=== PATIENT | female | born 1955 | race Two or more races ===

== ENCOUNTER 2019-12-29 14:06 | Inpatient (IN) | payer MEDICARE, MEDICAID ==
[~2019-12-29] VITALS: Ht 165.1 cm; Wt 146.0 kg
[2019-12-29 15:02] LABS: Eosinophils # (auto) 0 10 ^3/uL (0-0.8); Eosinophils % (auto) 0.1 % (0.0-7.0); Lymphocytes # (auto) 0.5 10 ^3/uL (0.4-5.4); Monocytes # (auto) 0.8 10 ^3/uL (0-1.3); Neutrophils % (auto) 93.3 % (37.0-80.0); Nucleated Red Blood Cells % 0.1 %
[2019-12-29 15:05] LABS: Basophils # (auto) 0 10 ^3/uL (0-0.2); Basophils % (auto) 0.1 % (0.0-2.0); Hematocrit 20.5 % (36.0-46.0); Lymphocytes % (auto) 2.4 % (10.0-50.0); Mean Corpuscular Hemoglobin 28.9 pg (28.0-32.0); Mean Corpuscular Volume 99.6 fL (80.0-100.0); Monocytes % (auto) 4.1 % (0.0-12.0); Neutrophils # (auto) 18.2 10 ^3/uL (1.6-8.6); Platelet Count (auto) 568 10^3/uL (140-450); Red Blood Cells 2.06 10^6/uL (4.0-5.20); Red Cell Distribution Width 16.6 % (11.8-14.3); White Blood Cell 19.5 10^3/uL (4.4-10.8)
[2019-12-29 15:16] LABS: Albumin 1.7 g/dL (3.4-5.0); Anion Gap 26 (5-15); BUN/Creatinine Ratio 9.2; Calcium 8.9 mg/dL (8.5-10.1); Carbon Dioxide 15 mmol/L (21-32); Chloride 83 mmol/L (98-107); GFR African American 5 mL/min; GFR Non-African American 4 mL/min; Magnesium 2.5 mg/dL (1.6-2.6); Potassium 3.8 mmol/L (3.5-5.1); Sodium 124 mmol/L (136-145)
[2019-12-29 15:18] LABS: Alanine Aminotransferase 6 U/L (13-56); Aspartate Aminotransferase 7 U/L (15-37); Bilirubin, Total 0.3 mg/dL (0.2-1.0); Total Protein 6.5 g/dL (6.4-8.2)
[2019-12-29 15:19] LABS: Hemoglobin 5.9 g/dL (12.2-16.2)
[2019-12-29 15:24] LABS: Alkaline Phosphatase 183 U/L (45-117)
[2019-12-29 15:30] LABS: Blood Urea Nitrogen 96 mg/dL (7-18)
[2019-12-29 15:31] LABS: Glucose 1126 mg/dL (74-106)
[2019-12-29] MEDS ORDERED: DEXTROSE (50%) 50ML SYRG IV PRN (15:45)
[2019-12-29] MEDS ORDERED: InsuLIN R (HUMAN) 100 UNITS in SODIUM CHL 0.9% 99 ML IV SCH (15:45)
[2019-12-29] MEDS ORDERED: INSULIN LANTUS (GLARGINE) 1 /0.01ml (100units/ml) SC ONE (15:45)
[2019-12-29] MEDS ORDERED: SODIUM CHLORIDE 0.9% 2,000 ML IV ONE (16:15)
[2019-12-29] MEDS ORDERED: NITROGLYCERIN 0.4 MG SL TAB SL PRN ×2 (16:15→16:45)
[2019-12-29] MEDS ORDERED: VANCOMYCIN PER PHARMACY 0 MG IV SCH (16:15)
[2019-12-29] MEDS ORDERED: SOD CHL 0.9%/ KCL 20MEQ 1,000 ML IV SCH (16:15)
[2019-12-29 16:24] LABS: Lactic Acid w/Reflex 2.8 mmol/L (0.4-2.0)
[2019-12-29] MEDS: ACCU-CHEK COMFORT CURVE STRIP VI SCH ×4 (16:30→23:09)
[2019-12-29] MEDS ORDERED: DOCUSATE SOD 100 MG CAP PO PRN (16:45)
[2019-12-29] MEDS ORDERED: MORPHINE SULFATE 4 MG/ML SYR/VIAL IV PRN (16:45)
[2019-12-29] MEDS ORDERED: LORazepam 2MG/ML-1ML VIAL IV PRN (16:45)
[2019-12-29] MEDS ORDERED: ALUM & MAG HYDROX-SIMETH LIQ(MAALOX) 30 ML PO PRN (16:45)
[2019-12-29] MEDS ORDERED: MORPHINE SULF INJ 2 MG/ML SYRINGE 1ML IV PRN (16:45)
[2019-12-29] MEDS ORDERED: ACETAMINOPHEN 325 MG TAB PO PRN (16:45)
[2019-12-29] MEDS: INSULIN LANTUS (GLARGINE) 1 /0.01ml (100units/ml) SC SCH (17:04)
[2019-12-29] MEDS: PIPERACILLIN-TAZOB 2.25GM 50 ML IV SCH (17:25)
[2019-12-29] MEDS ORDERED: VANCOMYCIN 1GM/250ML 250 ML IV ONE (17:30)
[2019-12-29 17:33] LABS: Cholesterol 129 mg/dL (< 200)
[2019-12-29 17:35] LABS: INR 1.18 (0.9-1.15); Partial Thromboplastin Time 27.5 sec (23.0-31.2)
[2019-12-29 17:36] LABS: HDL Cholesterol 20 mg/dL (40-59); Triglycerides 436 mg/dL (< 150)
[2019-12-29] MEDS ORDERED: PYRI25TA16 PO (17:39)
[2019-12-29] MEDS ORDERED: SEVE800T8 PO (17:39)
[2019-12-29] MEDS ORDERED: LEVO25TA6 PO (17:39)
[2019-12-29] MEDS ORDERED: PERCOT PO (17:39)
[2019-12-29] MEDS ORDERED: TRAM50TA2 PO (17:39)
[2019-12-29] MEDS ORDERED: ISOS30TA4 PO (17:39)
[2019-12-29] MEDS ORDERED: ZOLP10TA6 PO (17:39)
[2019-12-29] MEDS ORDERED: CILO100T PO (17:39)
[2019-12-29] MEDS ORDERED: OMEP-263 PO (17:39)
[2019-12-29] MEDS ORDERED: CLOP75TA41 PO (17:39)
[2019-12-29] MEDS ORDERED: LATA0.0019 LEFTEYE (17:39)
[2019-12-29] MEDS ORDERED: BUME1TAB3 PO (17:41)
[2019-12-29] MEDS ORDERED: CALCIUM ACETATE 667 MG CAP PO SCH (18:00)
[2019-12-29 18:35] VITALS: BP 115/60
[2019-12-29 19:03] VITALS: BP 130/49
[2019-12-29] MEDS: SEVELAMER 800 MG TAB PO SCH (20:23)
[2019-12-29] MEDS: FERROUS SULFATE 325 MG TAB PO SCH (20:38)
[2019-12-29 20:55] VITALS: BP 143/50
[2019-12-29 21:30] VITALS: BP 143/53
[2019-12-29] MEDS: SODIUM CHLORIDE 0.9% 1,000 ML IV SCH (21:53)
[2019-12-29] MEDS ORDERED: FAMOTIDINE 20 MG TAB PO SCH (22:00)
[2019-12-29] MEDS ORDERED: LATANOPROST 0.005 % OPTH(EYE) SOL 2.5ML EACHEYE SCH (22:00)
[2019-12-29] MEDS: FAMOTIDINE (10MG/ML) 2ML VL IV SCH (22:13)
[2019-12-29] MEDS: CILOSTAZOL 100 MG TAB PO SCH ×2 (22:13→23:00)
[2019-12-29] MEDS: ATORVASTATIN 20 MG TAB PO SCH (22:13)
[2019-12-29 23:00] VITALS: BP 143/53
[2019-12-29] MEDS ORDERED: INSU1INJ19 SC (23:41)
[2019-12-29] MEDS ORDERED: INSUINJ2 SC (23:41)
[2019-12-29] MEDS ORDERED: INSREG3 SC (23:41)
[2019-12-30] VITALS (13 sets, daily range): BP systolic 99–160; BP diastolic 25–72
[2019-12-30] MEDS ORDERED: InsuLIN R (HUMAN) 100 UNITS in SODIUM CHL 0.9% 99 ML IV SCH (00:15)
[2019-12-30] MEDS: ACCU-CHEK COMFORT CURVE STRIP VI SCH ×16 (00:35→22:38)
[2019-12-30] MEDS: InsuLIN R (HUMAN) 100 UNITS in SODIUM CHL 0.9% 99 ML IV SCH ×2 (01:45→03:44)
[2019-12-30] MEDS: SODIUM CHLORIDE 0.9% 1,000 ML IV SCH ×2 (02:45→10:22)
[2019-12-30 03:12] LABS: Basophils # (auto) 0.1 10 ^3/uL (0-0.2); Basophils % (auto) 0.4 % (0.0-2.0); Eosinophils # (auto) 0 10 ^3/uL (0-0.8); Eosinophils % (auto) 0.2 % (0.0-7.0); Hematocrit 22.5 % (36.0-46.0); Hemoglobin 7.2 g/dL (12.2-16.2); Lymphocytes # (auto) 0.9 10 ^3/uL (0.4-5.4); Mean Corpuscular Hemoglobin 28.9 pg (28.0-32.0); Mean Corpuscular Volume 90.5 fL (80.0-100.0); Monocytes # (auto) 0.6 10 ^3/uL (0-1.3); Monocytes % (auto) 3.5 % (0.0-12.0); Neutrophils # (auto) 16.2 10 ^3/uL (1.6-8.6); Neutrophils % (auto) 90.9 % (37.0-80.0); Nucleated Red Blood Cells % 0.1 %; Platelet Count (auto) 470 10^3/uL (140-450); Red Blood Cells 2.48 10^6/uL (4.0-5.20); Red Cell Distribution Width 15.5 % (11.8-14.3); White Blood Cell 17.8 10^3/uL (4.4-10.8)
[2019-12-30 03:40] LABS: Calcium 8.6 mg/dL (8.5-10.1)
[2019-12-30 03:49] LABS: BUN/Creatinine Ratio 9.6
[2019-12-30] MEDS ORDERED: POTASSIUM CHL 20MEQ/100ML 100 ML IV ONE (04:45)
[2019-12-30] MEDS ORDERED: BUMETANIDE 1 MG TAB PO SCH (06:00)
[2019-12-30] MEDS: LEVOTHYROXINE SODIUM 25 MCG TAB PO SCH (06:38)
[2019-12-30] MEDS ORDERED: LEVOTHYROXINE SODIUM 25 MCG TAB PO SCH (07:00)
[2019-12-30] MEDS: FERROUS SULFATE 325 MG TAB PO SCH ×3 (08:00→17:50)
[2019-12-30] MEDS: SEVELAMER 800 MG TAB PO SCH ×3 (08:00→17:50)
[2019-12-30 08:05] LABS: Hemoglobin 7.3 g/dL (12.2-16.2)
[2019-12-30 08:06] LABS: Hematocrit 22.1 % (36.0-46.0)
[2019-12-30] MEDS: FAMOTIDINE (10MG/ML) 2ML VL IV SCH ×2 (09:06→21:50)
[2019-12-30] MEDS: PIPERACILLIN-TAZOB 2.25GM 50 ML IV SCH ×2 (09:06→21:51)
[2019-12-30] MEDS: CILOSTAZOL 100 MG TAB PO SCH ×2 (09:07→21:51)
[2019-12-30] MEDS: ISOSORBIDE MONONITRATE ER 60 MG TAB PO SCH (09:07)
[2019-12-30] MEDS: CHOLECALCIFEROL (VITD3) 2,000 UNIT CAP PO SCH (10:00)
[2019-12-30] MEDS: PYRIDOXINE HCL 50 MG TAB PO SCH (10:00)
[2019-12-30] MEDS: INSULIN LANTUS (GLARGINE) 1 /0.01ml (100units/ml) SC SCH (10:00)
[2019-12-30] MEDS ORDERED: GOLYTELY 4L KIT PO ONE (10:15)
[2019-12-30] MEDS ORDERED: VANCOMYCIN 500 MG in D5W 5% 100 ML IV ONE (13:00)
[2019-12-30 14:32] LABS: Basophils # (auto) 0 10 ^3/uL (0-0.2); Eosinophils # (auto) 0.3 10 ^3/uL (0-0.8); Monocytes # (auto) 0.8 10 ^3/uL (0-1.3); Monocytes % (auto) 4.6 % (0.0-12.0)
[2019-12-30 14:33] LABS: Basophils % (auto) 0.2 % (0.0-2.0); Eosinophils % (auto) 1.7 % (0.0-7.0); Hematocrit 21.8 % (36.0-46.0); Hemoglobin 7.5 g/dL (12.2-16.2); Lymphocytes # (auto) 1.3 10 ^3/uL (0.4-5.4); Lymphocytes % (auto) 7.4 % (10.0-50.0); Mean Corpuscular Hemoglobin 29.8 pg (28.0-32.0); Mean Corpuscular Hgb Conc. 34.4 g/dL (32.0-36.0); Mean Corpuscular Volume 86.6 fL (80.0-100.0); Neutrophils # (auto) 15.1 10 ^3/uL (1.6-8.6); Neutrophils % (auto) 86.1 % (37.0-80.0); Nucleated Red Blood Cells % 0.2 %; Platelet Count (auto) 463 10^3/uL (140-450); Red Blood Cells 2.52 10^6/uL (4.0-5.20); Red Cell Distribution Width 15.4 % (11.8-14.3); White Blood Cell 17.5 10^3/uL (4.4-10.8)
[2019-12-30 14:48] LABS: Albumin 1.5 g/dL (3.4-5.0); Calcium 8.6 mg/dL (8.5-10.1); Potassium 3.1 mmol/L (3.5-5.1)
[2019-12-30 14:52] LABS: BUN/Creatinine Ratio 10.5; Bilirubin, Total 0.3 mg/dL (0.2-1.0); Total Protein 5.8 g/dL (6.4-8.2)
[2019-12-30] MEDS ORDERED: POTASSIUM CHLORIDE 60 MEQ, LIDOCAINE 1% (LOCAL ANESTH.) 6 ML in SODIUM CHL 0.9% 500 ML IV ONE (15:15)
[2019-12-30] MEDS: LINEZOLID 600MG/300ML 300 ML IV SCH (16:10)
[2019-12-30 16:18] LABS: Urine Amorphous Crystal MOD /hpf (None Seen); Urine Bacteria NONE SEEN /hpf (None Seen); Urine Blood 1+ /uL (Negative); Urine Specific Gravity 1.014 (1.001-1.035); Urine WBC 1222 /hpf (0 - 5); Urine WBC Clumps PRESENT /hpf (None Seen)
[2019-12-30] MEDS ORDERED: PERITONEAL DIALYSIS 2.5% SOLN 2,000 ML IP SCH (18:00)
[2019-12-30] MEDS: ATORVASTATIN 20 MG TAB PO SCH (21:51)
[2019-12-30] MEDS: LATANOPROST 0.005 % OPTH(EYE) SOL 2.5ML LEFTEYE SCH (21:51)
[2019-12-31] VITALS (11 sets, daily range): BP systolic 102–138; BP diastolic 40–75
[2019-12-31] MEDS: PERITONEAL DIALYSIS 2.5% IP SCH ×4 (00:29→21:00)
[2019-12-31] MEDS: HEPARIN SODIUM IP SCH ×4 (00:29→21:00)
[2019-12-31] MEDS: ACCU-CHEK COMFORT CURVE STRIP VI SCH ×9 (01:26→18:00)
[2019-12-31] MEDS: InsuLIN R (HUMAN) 100 UNITS in SODIUM CHL 0.9% 99 ML IV SCH (01:29)
[2019-12-31] MEDS: HYDROcodone-ACET 5/325MG TAB PO PRN (01:41)
[2019-12-31] MEDS: LINEZOLID 600MG/300ML 300 ML IV SCH ×2 (03:31→16:00)
[2019-12-31 03:50] LABS: Basophils # (auto) 0 10 ^3/uL (0-0.2); Basophils % (auto) 0.1 % (0.0-2.0); Mean Corpuscular Volume 88.4 fL (80.0-100.0); Monocytes # (auto) 0.7 10 ^3/uL (0-1.3)
[2019-12-31 03:51] LABS: Eosinophils # (auto) 0.3 10 ^3/uL (0-0.8); Eosinophils % (auto) 1.7 % (0.0-7.0); Hematocrit 21.5 % (36.0-46.0); Lymphocytes # (auto) 0.9 10 ^3/uL (0.4-5.4); Lymphocytes % (auto) 5.4 % (10.0-50.0); Mean Corpuscular Hemoglobin 28.9 pg (28.0-32.0); Mean Corpuscular Hgb Conc. 32.7 g/dL (32.0-36.0); Neutrophils # (auto) 15.2 10 ^3/uL (1.6-8.6); Neutrophils % (auto) 88.8 % (37.0-80.0); Nucleated Red Blood Cells % 0.1 %; Platelet Count (auto) 447 10^3/uL (140-450); Red Blood Cells 2.43 10^6/uL (4.0-5.20); Red Cell Distribution Width 15.7 % (11.8-14.3); White Blood Cell 17.1 10^3/uL (4.4-10.8)
[2019-12-31 04:30] LABS: Albumin 1.4 g/dL (3.4-5.0); Calcium 8.2 mg/dL (8.5-10.1); Potassium 3.2 mmol/L (3.5-5.1)
[2019-12-31 04:35] LABS: BUN/Creatinine Ratio 10.1; Bilirubin, Total 0.3 mg/dL (0.2-1.0); Total Protein 5.5 g/dL (6.4-8.2)
[2019-12-31] MEDS ORDERED: POTASSIUM CHL 20MEQ/100ML 100 ML IV ONE ×2 (05:15→05:21)
[2019-12-31] MEDS: LEVOTHYROXINE SODIUM 25 MCG TAB PO SCH (06:45)
[2019-12-31] MEDS: ONDANSETRON HCL 4 MG/2 ML VIAL IV PRN (06:52)
[2019-12-31] MEDS: FERROUS SULFATE 325 MG TAB PO SCH ×3 (08:00→18:00)
[2019-12-31] MEDS: FAMOTIDINE (10MG/ML) 2ML VL IV SCH (08:49)
[2019-12-31] MEDS: ISOSORBIDE MONONITRATE ER 60 MG TAB PO SCH (08:50)
[2019-12-31] MEDS: CHOLECALCIFEROL (VITD3) 2,000 UNIT CAP PO SCH (08:50)
[2019-12-31] MEDS: PYRIDOXINE HCL 50 MG TAB PO SCH (08:50)
[2019-12-31] MEDS: PIPERACILLIN-TAZOB 2.25GM 50 ML IV SCH ×2 (08:51→23:20)
[2019-12-31] MEDS: SEVELAMER 800 MG TAB PO SCH ×3 (08:51→18:00)
[2019-12-31] MEDS: CILOSTAZOL 100 MG TAB PO SCH ×2 (09:19→23:20)
[2019-12-31 09:43] LABS: Hemoglobin 7.3 g/dL (12.2-16.2)
[2019-12-31 09:44] LABS: Hematocrit 22.6 % (36.0-46.0)
[2019-12-31] MEDS ORDERED: DEXTROSE (50%) 50ML SYRG IV PRN (10:45)
[2019-12-31] MEDS ORDERED: INSULIN LANTUS (GLARGINE) 1 /0.01ml (100units/ml) SC ONE (10:45)
[2019-12-31] MEDS: InsuLIN REG 1unit/0.01ml Soln (100units/ml) SC SCH ×3 (12:00→23:45)
[2019-12-31] MEDS: PERITONEAL DIALYSIS 2.5% SOLN 2,000 ML IP SCH (21:00)
[2019-12-31] MEDS: ATORVASTATIN 20 MG TAB PO SCH (23:20)
[2019-12-31] MEDS: LATANOPROST 0.005 % OPTH(EYE) SOL 2.5ML LEFTEYE SCH (23:22)
[2019-12-31] MEDS: INSULIN LANTUS (GLARGINE) 1 /0.01ml (100units/ml) SC SCH (23:45)
[2020-01-01] VITALS (24 sets, daily range): BP systolic 55–164; BP diastolic 16–122
[2020-01-01] MEDS: ACCU-CHEK COMFORT CURVE STRIP VI SCH ×4 (00:11→18:15)
[2020-01-01] MEDS: HEPARIN SODIUM IP SCH ×4 (03:00→18:15)
[2020-01-01] MEDS: PERITONEAL DIALYSIS 2.5% IP SCH ×4 (03:00→18:15)
[2020-01-01] MEDS: LINEZOLID 600MG/300ML 300 ML IV SCH ×3 (04:08→18:16)
[2020-01-01] MEDS: InsuLIN REG 1unit/0.01ml Soln (100units/ml) SC SCH ×3 (05:32→18:15)
[2020-01-01] MEDS: LEVOTHYROXINE SODIUM 25 MCG TAB PO SCH (05:56)
[2020-01-01] MEDS: PERITONEAL DIALYSIS 2.5% SOLN 2,000 ML IP SCH ×3 (06:00→12:00)
[2020-01-01] MEDS: SEVELAMER 800 MG TAB PO SCH ×3 (08:00→18:15)
[2020-01-01] MEDS: FERROUS SULFATE 325 MG TAB PO SCH ×3 (08:00→18:15)
[2020-01-01] MEDS ORDERED: NALOXONE HCL 0.4 MG/ML VIAL ONE (08:37)
[2020-01-01] MEDS ORDERED: SODIUM CHLORIDE LOCK 10 ML ONE (08:37)
[2020-01-01] MEDS ORDERED: MIDAZOLAM HCL 5 MG/ML-1ML VIAL ONE (08:37)
[2020-01-01] MEDS ORDERED: FLUMAZENIL 0.1 MG/ML INJ 10ML MDV IV ONE (08:37)
[2020-01-01] MEDS ORDERED: diphenhdrAMINE HCL 50 MG/1 ML VL ONE (08:37)
[2020-01-01] MEDS ORDERED: fentaNYL CITRATE 100 MCG/2 ML VL ONE (08:38)
[2020-01-01 08:55] LABS: Basophils # (auto) 0 10 ^3/uL (0-0.2); Basophils % (auto) 0.2 % (0.0-2.0); Eosinophils # (auto) 0.5 10 ^3/uL (0-0.8); Eosinophils % (auto) 2.5 % (0.0-7.0); Hematocrit 22.6 % (36.0-46.0); Hemoglobin 7.4 g/dL (12.2-16.2); Lymphocytes # (auto) 1.7 10 ^3/uL (0.4-5.4); Lymphocytes % (auto) 8.2 % (10.0-50.0); Mean Corpuscular Hemoglobin 28.7 pg (28.0-32.0); Mean Corpuscular Hgb Conc. 32.8 g/dL (32.0-36.0); Mean Corpuscular Volume 87.3 fL (80.0-100.0); Monocytes % (auto) 4.9 % (0.0-12.0); Neutrophils # (auto) 17.6 10 ^3/uL (1.6-8.6); Neutrophils % (auto) 84.2 % (37.0-80.0); Nucleated Red Blood Cells % 0.4 %; Platelet Count (auto) 395 10^3/uL (140-450); Red Blood Cells 2.58 10^6/uL (4.0-5.20); Red Cell Distribution Width 15.4 % (11.8-14.3); White Blood Cell 20.9 10^3/uL (4.4-10.8)
[2020-01-01 09:20] LABS: BUN/Creatinine Ratio 9.5; Calcium 8.3 mg/dL (8.5-10.1)
[2020-01-01] MEDS: CHOLECALCIFEROL (VITD3) 2,000 UNIT CAP PO SCH (10:00)
[2020-01-01] MEDS: ISOSORBIDE MONONITRATE ER 60 MG TAB PO SCH (10:00)
[2020-01-01] MEDS: PYRIDOXINE HCL 50 MG TAB PO SCH (10:26)
[2020-01-01] MEDS: PIPERACILLIN-TAZOB 2.25GM 50 ML IV SCH ×2 (10:26→23:42)
[2020-01-01] MEDS: CILOSTAZOL 100 MG TAB PO SCH ×2 (10:26→22:00)
[2020-01-01] MEDS: FAMOTIDINE 20 MG TAB PO SCH (10:26)
[2020-01-01] MEDS: INSULIN LANTUS (GLARGINE) 1 /0.01ml (100units/ml) SC SCH ×2 (10:28→23:45)
[2020-01-01] MEDS ORDERED: POTASSIUM CHLORIDE 60 MEQ, LIDOCAINE 1% (LOCAL ANESTH.) 6 ML in SODIUM CHL 0.9% 500 ML IV ONE (12:00)
[2020-01-01] MEDS ORDERED: InsuLIN REG 1unit/0.01ml Soln (100units/ml) IV ONE (15:45)
[2020-01-01] MEDS: HYDROcodone-ACET 5/325MG TAB PO PRN (18:17)
[2020-01-01] MEDS: LATANOPROST 0.005 % OPTH(EYE) SOL 2.5ML LEFTEYE SCH (22:00)
[2020-01-01 22:09] LABS: INR 1.16 (0.9-1.15); Partial Thromboplastin Time 35.6 sec (23.0-31.2)
[2020-01-01] MEDS: NOREPINEPHRINE 8 MG/250ML KIT 250 ML IV SCH (23:33)
[2020-01-01] MEDS: ATORVASTATIN 20 MG TAB PO SCH (23:40)
[2020-01-01] MEDS: ALBUMIN 25% 50 ML IV SCH (23:41)
[2020-01-01] MEDS: SOD CHL 0.9%/ KCL 20MEQ 1,000 ML IV SCH (23:42)
[2020-01-02] VITALS (95 sets, daily range): BP systolic 91–156; BP diastolic 21–75
[2020-01-02] MEDS: ACCU-CHEK COMFORT CURVE STRIP VI SCH ×5 (00:34→23:33)
[2020-01-02] MEDS ORDERED: LIDOCAINE 1% (LOCAL ANESTH.) PF 5ml SDV ID ONE (01:15)
[2020-01-02] MEDS: ALBUMIN 25% 50 ML IV SCH ×2 (02:11→11:35)
[2020-01-02] MEDS: LINEZOLID 600MG/300ML 300 ML IV SCH (03:59)
[2020-01-02] MEDS: InsuLIN REG 1unit/0.01ml Soln (100units/ml) SC SCH ×5 (05:38→23:33)
[2020-01-02] MEDS: PERITONEAL DIALYSIS 1.5% IP SCH ×6 (06:36→18:30)
[2020-01-02] MEDS: HEPARIN SODIUM IP SCH ×6 (06:36→18:30)
[2020-01-02] MEDS: LEVOTHYROXINE SODIUM 25 MCG TAB PO SCH (06:51)
[2020-01-02 08:57] LABS: Basophils # (auto) 0 10 ^3/uL (0-0.2); Basophils % (auto) 0.1 % (0.0-2.0); Eosinophils # (auto) 0.4 10 ^3/uL (0-0.8)
[2020-01-02 09:00] LABS: Eosinophils % (auto) 2.3 % (0.0-7.0); Hematocrit 20.3 % (36.0-46.0); Lymphocytes # (auto) 1.2 10 ^3/uL (0.4-5.4); Lymphocytes % (auto) 6.8 % (10.0-50.0); Mean Corpuscular Hemoglobin 28.5 pg (28.0-32.0); Mean Corpuscular Hgb Conc. 32.5 g/dL (32.0-36.0); Mean Corpuscular Volume 87.6 fL (80.0-100.0); Monocytes % (auto) 5.9 % (0.0-12.0); Neutrophils # (auto) 14.6 10 ^3/uL (1.6-8.6); Neutrophils % (auto) 84.9 % (37.0-80.0); Platelet Count (auto) 350 10^3/uL (140-450); Red Blood Cells 2.31 10^6/uL (4.0-5.20); Red Cell Distribution Width 15.7 % (11.8-14.3); White Blood Cell 17.2 10^3/uL (4.4-10.8)
[2020-01-02 09:04] LABS: Hemoglobin 6.6 g/dL (12.2-16.2)
[2020-01-02 09:22] LABS: Albumin 1.7 g/dL (3.4-5.0); Anion Gap 15 (5-15); Blood Urea Nitrogen 63 mg/dL (7-18); Calcium 7.6 mg/dL (8.5-10.1); Carbon Dioxide 20 mmol/L (21-32); Chloride 101 mmol/L (98-107); Glucose 390 mg/dL (74-106); Potassium 3.3 mmol/L (3.5-5.1); Sodium 136 mmol/L (136-145)
[2020-01-02 09:25] LABS: Alanine Aminotransferase < 6 U/L (13-56); Alkaline Phosphatase 143 U/L (45-117); Aspartate Aminotransferase 6 U/L (15-37); Bilirubin, Total 0.4 mg/dL (0.2-1.0); GFR African American 8 mL/min; GFR Non-African American 6 mL/min; Total Protein 5.3 g/dL (6.4-8.2)
[2020-01-02] MEDS: INSULIN LANTUS (GLARGINE) 1 /0.01ml (100units/ml) SC SCH ×2 (10:00→21:57)
[2020-01-02] MEDS: CILOSTAZOL 100 MG TAB PO SCH ×2 (10:00→21:57)
[2020-01-02] MEDS: PYRIDOXINE HCL 50 MG TAB PO SCH (10:00)
[2020-01-02] MEDS: CHOLECALCIFEROL (VITD3) 1,000UNIT=25mCg TAB PO SCH (10:00)
[2020-01-02] MEDS: ISOSORBIDE MONONITRATE ER 60 MG TAB PO SCH (10:00)
[2020-01-02] MEDS: FAMOTIDINE 20 MG TAB PO SCH (10:00)
[2020-01-02] MEDS ORDERED: EPINEPHrine HCL 1 MG/10 ML SYRG ONE (10:02)
[2020-01-02] MEDS ORDERED: MIDAZOLAM HCL 5 MG/ML-1ML VIAL ONE (10:19)
[2020-01-02] MEDS ORDERED: SODIUM CHLORIDE LOCK 10 ML ONE (10:19)
[2020-01-02] MEDS ORDERED: LIDOCAINE VISCOUS 2% 15ML UD ONE (10:19)
[2020-01-02] MEDS ORDERED: diphenhdrAMINE HCL 50 MG/1 ML VL ONE (10:19)
[2020-01-02] MEDS ORDERED: NALOXONE HCL 0.4 MG/ML VIAL ONE (10:19)
[2020-01-02] MEDS ORDERED: fentaNYL CITRATE 100 MCG/2 ML VL ONE (10:20)
[2020-01-02] MEDS: SODIUM CHLOR 0.9% PF (SALINE LOCK) 10ML VIAL/SYR IV SCH ×2 (11:34→22:02)
[2020-01-02] MEDS: PIPERACILLIN-TAZOB 2.25GM 50 ML IV SCH (11:35)
[2020-01-02] MEDS: SOD CHL 0.9%/ KCL 20MEQ 1,000 ML IV SCH ×2 (11:35→20:00)
[2020-01-02] MEDS: NOREPINEPHRINE 8 MG/250ML KIT 250 ML IV SCH (11:47)
[2020-01-02] MEDS ORDERED: SOD CHL 0.9%/ KCL 20MEQ 1,000 ML IV SCH (14:15)
[2020-01-02] MEDS: PANTOPRAZOLE 40 MG/10 ML VIAL INJ IV SCH ×2 (14:49→22:02)
[2020-01-02] MEDS ORDERED: VANCOMYCIN PER PHARMACY 0 MG IV SCH (15:15)
[2020-01-02] MEDS ORDERED: VANCOMYCIN 1GM/250ML 250 ML IV ONE (15:45)
[2020-01-02] MEDS: MEROPENEM 500MG IVPB 50 ML IV SCH (19:15)
[2020-01-02] MEDS: ATORVASTATIN 20 MG TAB PO SCH (20:32)
[2020-01-02] MEDS: HYDROcodone-ACET 5/325MG TAB PO PRN (20:33)
[2020-01-02] MEDS: LATANOPROST 0.005 % OPTH(EYE) SOL 2.5ML LEFTEYE SCH ×2 (22:02→22:26)
[2020-01-03] VITALS (48 sets, daily range): BP systolic 95–158; BP diastolic 32–76
[2020-01-03] MEDS: HEPARIN SODIUM IP SCH ×5 (00:02→23:54)
[2020-01-03] MEDS: PERITONEAL DIALYSIS 1.5% IP SCH ×5 (00:02→23:54)
[2020-01-03] MEDS: MORPHINE SULF INJ 2 MG/ML SYRINGE 1ML IV PRN ×3 (00:24→18:46)
[2020-01-03] MEDS: NOREPINEPHRINE 8 MG/250ML KIT 250 ML IV SCH (01:01)
[2020-01-03] MEDS: ONDANSETRON HCL 4 MG/2 ML VIAL IV PRN (04:55)
[2020-01-03] MEDS: LEVOTHYROXINE SODIUM 25 MCG TAB PO SCH (04:57)
[2020-01-03] MEDS: InsuLIN REG 1unit/0.01ml Soln (100units/ml) SC SCH ×4 (05:38→23:51)
[2020-01-03] MEDS: ACCU-CHEK COMFORT CURVE STRIP VI SCH ×4 (05:39→23:51)
[2020-01-03 06:23] LABS: INR 1.24 (0.9-1.15); Partial Thromboplastin Time 41.4 sec (23.0-31.2)
[2020-01-03 06:27] LABS: Anion Gap 15 (5-15); BUN/Creatinine Ratio 8.3; Blood Urea Nitrogen 50 mg/dL (7-18); Calcium 7.6 mg/dL (8.5-10.1); Carbon Dioxide 19 mmol/L (21-32); Chloride 104 mmol/L (98-107); GFR African American 9 mL/min; GFR Non-African American 7 mL/min; Glucose 212 mg/dL (74-106); Potassium 3.4 mmol/L (3.5-5.1); Sodium 138 mmol/L (136-145)
[2020-01-03 06:36] LABS: Basophils # (auto) 0 10 ^3/uL (0-0.2); Basophils % (auto) 0.2 % (0.0-2.0); Eosinophils # (auto) 0.5 10 ^3/uL (0-0.8); Eosinophils % (auto) 3.1 % (0.0-7.0); Hematocrit 28.9 % (36.0-46.0); Hemoglobin 9.5 g/dL (12.2-16.2); Lymphocytes # (auto) 1.4 10 ^3/uL (0.4-5.4); Lymphocytes % (auto) 8.8 % (10.0-50.0); Mean Corpuscular Hemoglobin 28.1 pg (28.0-32.0); Mean Corpuscular Hgb Conc. 32.9 g/dL (32.0-36.0); Mean Corpuscular Volume 85.5 fL (80.0-100.0); Monocytes # (auto) 1.5 10 ^3/uL (0-1.3); Monocytes % (auto) 9.2 % (0.0-12.0); Neutrophils # (auto) 12.8 10 ^3/uL (1.6-8.6); Neutrophils % (auto) 78.7 % (37.0-80.0); Nucleated Red Blood Cells % 0.1 %; Platelet Count (auto) 215 10^3/uL (140-450); Red Blood Cells 3.38 10^6/uL (4.0-5.20); Red Cell Distribution Width 15.5 % (11.8-14.3); White Blood Cell 16.2 10^3/uL (4.4-10.8)
[2020-01-03] MEDS: CHOLECALCIFEROL (VITD3) 1,000UNIT=25mCg TAB PO SCH (09:52)
[2020-01-03] MEDS: PYRIDOXINE HCL 50 MG TAB PO SCH (09:52)
[2020-01-03] MEDS: CILOSTAZOL 100 MG TAB PO SCH ×2 (09:52→21:45)
[2020-01-03] MEDS: PANTOPRAZOLE 40 MG/10 ML VIAL INJ IV SCH ×2 (09:53→21:45)
[2020-01-03] MEDS: ISOSORBIDE MONONITRATE ER 60 MG TAB PO SCH (09:53)
[2020-01-03] MEDS: MEROPENEM 500MG IVPB 50 ML IV SCH (09:54)
[2020-01-03] MEDS: SODIUM CHLOR 0.9% PF (SALINE LOCK) 10ML VIAL/SYR IV SCH ×2 (09:54→21:45)
[2020-01-03] MEDS ORDERED: MEROPENEM 500MG IVPB 50 ML IV SCH (10:00)
[2020-01-03] MEDS: INSULIN LANTUS (GLARGINE) 1 /0.01ml (100units/ml) SC SCH ×2 (10:09→21:52)
[2020-01-03] MEDS ORDERED: HYOSCYAMINE SULF 0.125 MG ODT TAB PO PRN (11:45)
[2020-01-03] MEDS ORDERED: VASOPRESSIN 50 UNITS in D5W 5% 247.5 ML IV SCH (13:00)
[2020-01-03] MEDS ORDERED: EPINEPHrine HCL 250 ML IV SCH (15:00)
[2020-01-03] MEDS: Nepro With Carbsteady ButterPecan 8oz Carton PO SCH (18:03)
[2020-01-03] MEDS: SOD CHL 0.9%/ KCL 20MEQ 1,000 ML IV SCH (18:13)
[2020-01-03] MEDS: HYDROcodone-ACET 5/325MG TAB PO PRN (19:36)
[2020-01-03] MEDS: ATORVASTATIN 20 MG TAB PO SCH (21:45)
[2020-01-03] MEDS: LATANOPROST 0.005 % OPTH(EYE) SOL 2.5ML LEFTEYE SCH (21:45)
[2020-01-04] VITALS (23 sets, daily range): BP systolic 80–139; BP diastolic 23–73
[2020-01-04 04:44] LABS: Basophils # (auto) 0 10 ^3/uL (0-0.2); Basophils % (auto) 0.1 % (0.0-2.0); Eosinophils # (auto) 0.4 10 ^3/uL (0-0.8); Eosinophils % (auto) 2.2 % (0.0-7.0); Hematocrit 29.4 % (36.0-46.0); Hemoglobin 9.6 g/dL (12.2-16.2); Lymphocytes # (auto) 1.8 10 ^3/uL (0.4-5.4); Lymphocytes % (auto) 10.3 % (10.0-50.0); Mean Corpuscular Hgb Conc. 32.7 g/dL (32.0-36.0); Mean Corpuscular Volume 85.5 fL (80.0-100.0); Monocytes # (auto) 1.3 10 ^3/uL (0-1.3); Monocytes % (auto) 7.1 % (0.0-12.0); Neutrophils # (auto) 14.4 10 ^3/uL (1.6-8.6); Neutrophils % (auto) 80.3 % (37.0-80.0); Platelet Count (auto) 172 10^3/uL (140-450); Red Blood Cells 3.43 10^6/uL (4.0-5.20); Red Cell Distribution Width 15.9 % (11.8-14.3); White Blood Cell 17.9 10^3/uL (4.4-10.8)
[2020-01-04 04:47] LABS: Anion Gap 13 (5-15); BUN/Creatinine Ratio 7.9; Blood Urea Nitrogen 45 mg/dL (7-18); Calcium 7.4 mg/dL (8.5-10.1); Carbon Dioxide 21 mmol/L (21-32); Chloride 105 mmol/L (98-107); GFR African American 10 mL/min; GFR Non-African American 8 mL/min; Glucose 200 mg/dL (74-106); Potassium 3.3 mmol/L (3.5-5.1); Sodium 139 mmol/L (136-145)
[2020-01-04] MEDS: LEVOTHYROXINE SODIUM 25 MCG TAB PO SCH (05:32)
[2020-01-04] MEDS: ONDANSETRON HCL 4 MG/2 ML VIAL IV PRN (05:32)
[2020-01-04] MEDS: ACCU-CHEK COMFORT CURVE STRIP VI SCH ×3 (05:32→18:09)
[2020-01-04] MEDS: InsuLIN REG 1unit/0.01ml Soln (100units/ml) SC SCH ×3 (05:33→18:00)
[2020-01-04] MEDS: PERITONEAL DIALYSIS 1.5% IP SCH ×3 (05:55→18:36)
[2020-01-04] MEDS: HEPARIN SODIUM IP SCH ×3 (05:55→18:36)
[2020-01-04] MEDS: SOD CHL 0.9%/ KCL 20MEQ 1,000 ML IV SCH (06:20)
[2020-01-04] MEDS: INSULIN LANTUS (GLARGINE) 1 /0.01ml (100units/ml) SC SCH ×2 (10:00→22:00)
[2020-01-04] MEDS: CILOSTAZOL 100 MG TAB PO SCH ×2 (10:00→21:23)
[2020-01-04] MEDS: PANTOPRAZOLE 40 MG/10 ML VIAL INJ IV SCH ×2 (10:59→11:07)
[2020-01-04] MEDS: ISOSORBIDE MONONITRATE ER 60 MG TAB PO SCH (10:59)
[2020-01-04] MEDS: HYDROcodone-ACET 5/325MG TAB PO PRN ×2 (11:00→20:37)
[2020-01-04] MEDS: SODIUM CHLOR 0.9% PF (SALINE LOCK) 10ML VIAL/SYR IV SCH ×2 (11:01→21:21)
[2020-01-04] MEDS: MEROPENEM 500MG IVPB 50 ML IV SCH (11:07)
[2020-01-04] MEDS: PYRIDOXINE HCL 50 MG TAB PO SCH (11:10)
[2020-01-04] MEDS: CHOLECALCIFEROL (VITD3) 1,000UNIT=25mCg TAB PO SCH (11:11)
[2020-01-04] MEDS: LEVALBUTEROL HCL 1.25 MG/3 ML NEB NEB SCH ×3 (12:00→23:42)
[2020-01-04] MEDS ORDERED: VANCOMYCIN 500 MG in D5W 5% 100 ML IV ONE (12:00)
[2020-01-04] MEDS ORDERED: HYDROmorphone HCL 2 MG/ML VL IV ONE (12:30)
[2020-01-04] MEDS: Nepro With Carbsteady ButterPecan 8oz Carton PO SCH ×2 (12:32→18:08)
[2020-01-04] MEDS: NOREPINEPHRINE 8 MG/250ML KIT 250 ML IV SCH (17:21)
[2020-01-04] MEDS: VANCOMYCIN HCL 125MG/5ML ORAL SOL PO SCH ×2 (18:09→22:00)
[2020-01-04 19:21] LABS: Lactic Acid w/Reflex 2.2 mmol/L (0.4-2.0)
[2020-01-04] MEDS: metroNIDAZOLE 500MG/100ML 100 ML IV SCH (20:34)
[2020-01-04] MEDS: ATORVASTATIN 20 MG TAB PO SCH (21:22)
[2020-01-04] MEDS: NYSTATIN TOPICAL POWDER 15GM TOP SCH (21:24)
[2020-01-04] MEDS: LATANOPROST 0.005 % OPTH(EYE) SOL 2.5ML LEFTEYE SCH (22:00)
[2020-01-05] VITALS (61 sets, daily range): BP systolic 69–148; BP diastolic 26–101
[2020-01-05] MEDS: ACCU-CHEK COMFORT CURVE STRIP VI SCH ×4 (00:57→18:24)
[2020-01-05] MEDS: InsuLIN REG 1unit/0.01ml Soln (100units/ml) SC SCH ×4 (00:58→18:28)
[2020-01-05] MEDS: HEPARIN SODIUM IP SCH ×4 (01:08→18:00)
[2020-01-05] MEDS: PERITONEAL DIALYSIS 1.5% IP SCH ×4 (01:08→18:00)
[2020-01-05] MEDS: metroNIDAZOLE 500MG/100ML 100 ML IV SCH ×3 (06:00→22:00)
[2020-01-05] MEDS: VANCOMYCIN HCL 125MG/5ML ORAL SOL PO SCH ×4 (06:00→22:00)
[2020-01-05] MEDS: LEVALBUTEROL HCL 1.25 MG/3 ML NEB NEB SCH ×3 (06:33→18:08)
[2020-01-05] MEDS: LEVOTHYROXINE SODIUM 25 MCG TAB PO SCH (06:54)
[2020-01-05] MEDS: Nepro With Carbsteady ButterPecan 8oz Carton PO SCH ×2 (08:00→18:00)
[2020-01-05] MEDS: SOD CHL 0.9%/ KCL 20MEQ 1,000 ML IV SCH (08:00)
[2020-01-05 08:03] LABS: Basophils # (auto) 0 10 ^3/uL (0-0.2); Basophils % (auto) 0.1 % (0.0-2.0); Eosinophils # (auto) 0.2 10 ^3/uL (0-0.8); Hematocrit 28.1 % (36.0-46.0); Hemoglobin 9.4 g/dL (12.2-16.2); Lymphocytes % (auto) 9.8 % (10.0-50.0); Mean Corpuscular Hemoglobin 29.4 pg (28.0-32.0); Mean Corpuscular Hgb Conc. 33.3 g/dL (32.0-36.0); Mean Corpuscular Volume 88.1 fL (80.0-100.0); Monocytes # (auto) 1.6 10 ^3/uL (0-1.3); Monocytes % (auto) 7.5 % (0.0-12.0); Neutrophils # (auto) 16.9 10 ^3/uL (1.6-8.6); Neutrophils % (auto) 81.6 % (37.0-80.0); Nucleated Red Blood Cells % 0.1 %; Platelet Count (auto) 173 10^3/uL (140-450); Red Blood Cells 3.19 10^6/uL (4.0-5.20); Red Cell Distribution Width 16.1 % (11.8-14.3); White Blood Cell 20.7 10^3/uL (4.4-10.8)
[2020-01-05 08:19] LABS: Potassium 3.7 mmol/L (3.5-5.1)
[2020-01-05] MEDS ORDERED: LIDOCAINE 1% HCL (LOCAL ANESTH.) INJ 20ML MDV ONE ×2 (08:19→09:53)
[2020-01-05] MEDS ORDERED: BUPIVACAINE HCL 50 ML ONE (08:19)
[2020-01-05] MEDS ORDERED: HYDROmorphone HCL 2 MG/ML VL ONE (08:26)
[2020-01-05] MEDS ORDERED: fentaNYL CITRATE 5 ML ONE (08:26)
[2020-01-05] MEDS ORDERED: fentaNYL CITRATE 100 MCG/2 ML VL ONE (08:26)
[2020-01-05] MEDS ORDERED: MIDAZOLAM HCL 1MG/1ML-2 ML VIAL ONE ×2 (08:26→10:07)
[2020-01-05] MEDS ORDERED: LIDOCAINE 2% (LOCAL ANESTH.) PF 5ml SDV ONE (08:27)
[2020-01-05] MEDS ORDERED: ROCURONIUM 10MG/ML 10ML VIAL IV ONE (08:27)
[2020-01-05] MEDS ORDERED: GLYCOPYRROLATE 0.2 MG/ML 1ML VIAL ONE (08:27)
[2020-01-05] MEDS ORDERED: ePHEDrine SULFATE 50 MG/ML AMP ONE (08:27)
[2020-01-05] MEDS ORDERED: ETOMIDATE (2MG/ML) 20ML VIAL IV ONE (08:27)
[2020-01-05] MEDS ORDERED: PHENYLEPHRINE HCL 10 MG/ML VL ONE (08:27)
[2020-01-05] MEDS ORDERED: ONDANSETRON HCL 4 MG/2 ML VIAL ONE (08:27)
[2020-01-05] MEDS ORDERED: PROPOFOL 10 MG/ML 20 ML IV ONE (08:27)
[2020-01-05 08:37] LABS: Calcium 7.2 mg/dL (8.5-10.1)
[2020-01-05] MEDS: MEROPENEM 500MG IVPB 50 ML IV SCH ×2 (09:42→23:00)
[2020-01-05] MEDS: PANTOPRAZOLE 40 MG/10 ML VIAL INJ IV SCH ×2 (09:43→22:00)
[2020-01-05] MEDS: INSULIN LANTUS (GLARGINE) 1 /0.01ml (100units/ml) SC SCH ×2 (09:44→22:00)
[2020-01-05] MEDS: CHOLECALCIFEROL (VITD3) 1,000UNIT=25mCg TAB PO SCH (09:44)
[2020-01-05] MEDS: PYRIDOXINE HCL 50 MG TAB PO SCH (09:44)
[2020-01-05] MEDS: ISOSORBIDE MONONITRATE ER 60 MG TAB PO SCH (09:44)
[2020-01-05] MEDS: CILOSTAZOL 100 MG TAB PO SCH ×2 (09:44→22:00)
[2020-01-05] MEDS: SODIUM CHLOR 0.9% PF (SALINE LOCK) 10ML VIAL/SYR IV SCH ×2 (09:44→22:00)
[2020-01-05] MEDS: NYSTATIN TOPICAL POWDER 15GM TOP SCH ×2 (09:45→22:00)
[2020-01-05] MEDS ORDERED: KETAMINE HCL 10 ML ONE (09:51)
[2020-01-05] MEDS ORDERED: ACCU-CHEK COMFORT CURVE STRIP VI ONE (10:45)
[2020-01-05] MEDS: MIDAZOLAM DRIP 50 mg/50mL 50 ML IV SCH (10:45)
[2020-01-05] MEDS ORDERED: HYDROmorphone HCL 2 MG/ML VL IV PRN (10:45)
[2020-01-05] MEDS: fentaNYL Drip 2500mCg/250mlNS 250 ML IV SCH (11:38)
[2020-01-05] MEDS ORDERED: SODIUM CHLORIDE 0.9% 1,000 ML IV SCH (13:30)
[2020-01-05 21:16] LABS: BUN/Creatinine Ratio 7.9; Calcium 6.9 mg/dL (8.5-10.1); Potassium 4.3 mmol/L (3.5-5.1)
[2020-01-05] MEDS: LATANOPROST 0.005 % OPTH(EYE) SOL 2.5ML LEFTEYE SCH (22:00)
[2020-01-05] MEDS: ATORVASTATIN 20 MG TAB PO SCH (22:00)
[2020-01-06] VITALS (103 sets, daily range): BP systolic 61–169; BP diastolic 25–162
[2020-01-06] MEDS: LEVALBUTEROL HCL 1.25 MG/3 ML NEB NEB SCH ×5 (00:17→23:58)
[2020-01-06] MEDS: metroNIDAZOLE 500MG/100ML 100 ML IV SCH ×3 (06:00→22:00)
[2020-01-06] MEDS: VANCOMYCIN HCL 125MG/5ML ORAL SOL PO SCH ×4 (06:00→22:00)
[2020-01-06] MEDS: HEPARIN SODIUM IP SCH ×5 (06:00→20:42)
[2020-01-06] MEDS: PERITONEAL DIALYSIS 1.5% IP SCH ×5 (06:00→20:42)
[2020-01-06] MEDS: ACCU-CHEK COMFORT CURVE STRIP VI SCH ×4 (06:00→20:21)
[2020-01-06] MEDS: InsuLIN REG 1unit/0.01ml Soln (100units/ml) SC SCH ×4 (06:05→20:21)
[2020-01-06 06:24] LABS: Basophils # (auto) 0.1 10 ^3/uL (0-0.2); Basophils % (auto) 0.3 % (0.0-2.0); Eosinophils # (auto) 0.3 10 ^3/uL (0-0.8); Hematocrit 27.6 % (36.0-46.0); Hemoglobin 8.8 g/dL (12.2-16.2); Lymphocytes # (auto) 1.9 10 ^3/uL (0.4-5.4); Lymphocytes % (auto) 7.5 % (10.0-50.0); Mean Corpuscular Hemoglobin 28.7 pg (28.0-32.0); Mean Corpuscular Volume 89.7 fL (80.0-100.0); Monocytes # (auto) 1.8 10 ^3/uL (0-1.3); Monocytes % (auto) 7.2 % (0.0-12.0); Neutrophils # (auto) 21.2 10 ^3/uL (1.6-8.6); Nucleated Red Blood Cells % 0.1 %; Platelet Count (auto) 210 10^3/uL (140-450); Red Blood Cells 3.08 10^6/uL (4.0-5.20); Red Cell Distribution Width 16.9 % (11.8-14.3); White Blood Cell 25.3 10^3/uL (4.4-10.8)
[2020-01-06 06:35] LABS: BUN/Creatinine Ratio 7.5; Calcium 7.3 mg/dL (8.5-10.1); Potassium 4.3 mmol/L (3.5-5.1)
[2020-01-06] MEDS: LEVOTHYROXINE SODIUM 25 MCG TAB PO SCH (07:00)
[2020-01-06] MEDS: Nepro With Carbsteady ButterPecan 8oz Carton PO SCH ×2 (08:00→18:00)
[2020-01-06] MEDS: MIDAZOLAM DRIP 50 mg/50mL 50 ML IV SCH ×4 (09:00→23:42)
[2020-01-06] MEDS: NOREPINEPHRINE 8 MG/250ML KIT 250 ML IV SCH ×2 (09:10→15:45)
[2020-01-06] MEDS: ISOSORBIDE MONONITRATE ER 60 MG TAB PO SCH (09:15)
[2020-01-06] MEDS: INSULIN LANTUS (GLARGINE) 1 /0.01ml (100units/ml) SC SCH ×2 (09:16→22:00)
[2020-01-06] MEDS: CHOLECALCIFEROL (VITD3) 1,000UNIT=25mCg TAB PO SCH (09:16)
[2020-01-06] MEDS: CILOSTAZOL 100 MG TAB PO SCH ×2 (09:16→22:00)
[2020-01-06] MEDS: PYRIDOXINE HCL 50 MG TAB PO SCH (09:16)
[2020-01-06] MEDS: PANTOPRAZOLE 40 MG/10 ML VIAL INJ IV SCH ×2 (10:15→22:00)
[2020-01-06] MEDS: NYSTATIN TOPICAL POWDER 15GM TOP SCH ×2 (10:27→22:00)
[2020-01-06] MEDS: SODIUM CHLOR 0.9% PF (SALINE LOCK) 10ML VIAL/SYR IV SCH ×2 (10:27→22:00)
[2020-01-06] MEDS: MEROPENEM 500MG IVPB 50 ML IV SCH ×2 (10:27→23:00)
[2020-01-06] MEDS ORDERED: VANCOMYCIN 1GM/250ML 250 ML IV ONE (12:00)
[2020-01-06] MEDS: fentaNYL Drip 2500mCg/250mlNS 250 ML IV SCH (15:15)
[2020-01-06] MEDS: ATORVASTATIN 20 MG TAB PO SCH (22:00)
[2020-01-06] MEDS: LATANOPROST 0.005 % OPTH(EYE) SOL 2.5ML LEFTEYE SCH (22:00)
[2020-01-07] VITALS (106 sets, daily range): BP systolic 73–196; BP diastolic 29–178
[2020-01-07] MEDS: ACCU-CHEK COMFORT CURVE STRIP VI SCH ×4 (01:35→18:00)
[2020-01-07] MEDS: InsuLIN REG 1unit/0.01ml Soln (100units/ml) SC SCH ×4 (02:03→18:52)
[2020-01-07] MEDS: metroNIDAZOLE 500MG/100ML 100 ML IV SCH ×3 (05:57→22:11)
[2020-01-07] MEDS: HEPARIN SODIUM IP SCH ×3 (06:00)
[2020-01-07] MEDS: PERITONEAL DIALYSIS 1.5% IP SCH ×3 (06:00)
[2020-01-07] MEDS: VANCOMYCIN HCL 125MG/5ML ORAL SOL PO SCH ×4 (06:00→22:12)
[2020-01-07] MEDS: LEVALBUTEROL HCL 1.25 MG/3 ML NEB NEB SCH ×3 (06:37→18:22)
[2020-01-07] MEDS: LEVOTHYROXINE SODIUM 25 MCG TAB PO SCH (06:56)
[2020-01-07] MEDS: Nepro With Carbsteady ButterPecan 8oz Carton PO SCH ×2 (08:00→18:52)
[2020-01-07 08:02] LABS: Basophils # (auto) 0.1 10 ^3/uL (0-0.2); Basophils % (auto) 0.4 % (0.0-2.0); Eosinophils # (auto) 0.3 10 ^3/uL (0-0.8); Hematocrit 26.8 % (36.0-46.0); Hemoglobin 8.5 g/dL (12.2-16.2); Lymphocytes # (auto) 1.9 10 ^3/uL (0.4-5.4); Lymphocytes % (auto) 7.8 % (10.0-50.0); Mean Corpuscular Hemoglobin 28.9 pg (28.0-32.0); Mean Corpuscular Hgb Conc. 31.9 g/dL (32.0-36.0); Mean Corpuscular Volume 90.8 fL (80.0-100.0); Monocytes # (auto) 1.5 10 ^3/uL (0-1.3); Monocytes % (auto) 5.9 % (0.0-12.0); Neutrophils # (auto) 21.3 10 ^3/uL (1.6-8.6); Neutrophils % (auto) 84.9 % (37.0-80.0); Nucleated Red Blood Cells % 0.1 %; Platelet Count (auto) 195 10^3/uL (140-450); Red Blood Cells 2.96 10^6/uL (4.0-5.20)
[2020-01-07 08:12] LABS: BUN/Creatinine Ratio 7.2; Calcium 7.3 mg/dL (8.5-10.1); Magnesium 1.7 mg/dL (1.6-2.6); Potassium 4.6 mmol/L (3.5-5.1)
[2020-01-07] MEDS: MIDAZOLAM DRIP 50 mg/50mL 50 ML IV SCH (08:55)
[2020-01-07] MEDS: NOREPINEPHRINE 8 MG/250ML KIT 250 ML IV SCH ×3 (08:55→22:41)
[2020-01-07] MEDS: ISOSORBIDE MONONITRATE ER 60 MG TAB PO SCH (09:56)
[2020-01-07] MEDS: CILOSTAZOL 100 MG TAB PO SCH ×2 (09:59→22:00)
[2020-01-07] MEDS: INSULIN LANTUS (GLARGINE) 1 /0.01ml (100units/ml) SC SCH ×2 (10:00→22:00)
[2020-01-07] MEDS: PYRIDOXINE HCL 50 MG TAB PO SCH (10:15)
[2020-01-07] MEDS: NYSTATIN TOPICAL POWDER 15GM TOP SCH ×2 (10:15→22:20)
[2020-01-07] MEDS: PANTOPRAZOLE 40 MG/10 ML VIAL INJ IV SCH ×2 (10:15→22:12)
[2020-01-07] MEDS: CHOLECALCIFEROL (VITD3) 1,000UNIT=25mCg TAB PO SCH (10:15)
[2020-01-07] MEDS: MEROPENEM 500MG IVPB 50 ML IV SCH ×2 (10:26→22:11)
[2020-01-07] MEDS: SODIUM CHLOR 0.9% PF (SALINE LOCK) 10ML VIAL/SYR IV SCH ×2 (10:26→22:12)
[2020-01-07] MEDS: PHENYLEPHRINE INJ 40 MG in SODIUM CHL 0.9% 250 ML IV SCH ×3 (10:52→21:11)
[2020-01-07] MEDS ORDERED: Glucerna 1.2 Cal 1Liter BOTTLE GT SCH (11:15)
[2020-01-07] MEDS ORDERED: SODIUM BICARBONATE 8.4 % INJ 50ML VIAL IV ONE ×3 (16:28→16:31)
[2020-01-07] MEDS: fentaNYL Drip 2500mCg/250mlNS 250 ML IV SCH (16:41)
[2020-01-07] MEDS ORDERED: CALCIUM CARB 500 MG CHEW TAB PO SCH (18:00)
[2020-01-07] MEDS: ATORVASTATIN 20 MG TAB PO SCH (22:12)
[2020-01-07] MEDS: HEPARIN SODIUM (PORCINE) 5000 UNITS/ML 1ML VIAL SC SCH (22:18)
[2020-01-07] MEDS: LATANOPROST 0.005 % OPTH(EYE) SOL 2.5ML LEFTEYE SCH (22:20)
[2020-01-08] VITALS (95 sets, daily range): BP systolic 64–149; BP diastolic 27–107
[2020-01-08] MEDS: LEVALBUTEROL HCL 1.25 MG/3 ML NEB NEB SCH ×4 (00:02→18:40)
[2020-01-08] MEDS: ACCU-CHEK COMFORT CURVE STRIP VI SCH ×4 (00:08→19:05)
[2020-01-08] MEDS: InsuLIN REG 1unit/0.01ml Soln (100units/ml) SC SCH ×4 (00:09→19:09)
[2020-01-08] MEDS: MIDAZOLAM DRIP 50 mg/50mL 50 ML IV SCH ×4 (00:37→19:04)
[2020-01-08] MEDS ORDERED: PHENYLEPHRINE IV 250 ML IV ONE (02:57)
[2020-01-08] MEDS ORDERED: PHENYLEPHRINE HCL 10 MG/ML VL ONE (02:57)
[2020-01-08] MEDS: NOREPINEPHRINE 8 MG/250ML KIT 250 ML IV SCH ×5 (03:21→23:01)
[2020-01-08] MEDS: PHENYLEPHRINE INJ 40 MG in SODIUM CHL 0.9% 250 ML IV SCH ×5 (03:33→21:44)
[2020-01-08 04:46] LABS: Eosinophils # (auto) 0.1 10 ^3/uL (0-0.8); Hemoglobin 9.2 g/dL (12.2-16.2); Mean Corpuscular Hgb Conc. 30.9 g/dL (32.0-36.0); Nucleated Red Blood Cells % 0.1 %
[2020-01-08 04:49] LABS: Basophils # (auto) 0.1 10 ^3/uL (0-0.2); Basophils % (auto) 0.6 % (0.0-2.0); Eosinophils % (auto) 0.5 % (0.0-7.0); Hematocrit 29.6 % (36.0-46.0); Lymphocytes # (auto) 1.4 10 ^3/uL (0.4-5.4); Lymphocytes % (auto) 6.1 % (10.0-50.0); Mean Corpuscular Hemoglobin 28.8 pg (28.0-32.0); Monocytes % (auto) 4.2 % (0.0-12.0); Neutrophils # (auto) 21.1 10 ^3/uL (1.6-8.6); Neutrophils % (auto) 88.6 % (37.0-80.0); Platelet Count (auto) 195 10^3/uL (140-450); Red Blood Cells 3.18 10^6/uL (4.0-5.20); Red Cell Distribution Width 17.2 % (11.8-14.3); White Blood Cell 23.8 10^3/uL (4.4-10.8)
[2020-01-08 05:12] LABS: Chloride 102 mmol/L (98-107); Potassium 4.7 mmol/L (3.5-5.1); Sodium 131 mmol/L (136-145)
[2020-01-08 05:16] LABS: Alanine Aminotransferase < 6 U/L (13-56); Albumin 1.1 g/dL (3.4-5.0); Alkaline Phosphatase 282 U/L (45-117); Anion Gap 11 (5-15); Aspartate Aminotransferase 16 U/L (15-37); BUN/Creatinine Ratio 7.3; Bilirubin, Total 0.3 mg/dL (0.2-1.0); Blood Urea Nitrogen 49 mg/dL (7-18); Carbon Dioxide 18 mmol/L (21-32); GFR African American 8 mL/min; GFR Non-African American 7 mL/min; Glucose 163 mg/dL (74-106); Magnesium 1.8 mg/dL (1.6-2.6); Total Protein 4.7 g/dL (6.4-8.2)
[2020-01-08] MEDS: metroNIDAZOLE 500MG/100ML 100 ML IV SCH ×3 (06:15→22:08)
[2020-01-08] MEDS: VANCOMYCIN HCL 125MG/5ML ORAL SOL PO SCH ×4 (06:15→22:12)
[2020-01-08] MEDS: LEVOTHYROXINE SODIUM 25 MCG TAB PO SCH (06:16)
[2020-01-08] MEDS: Nepro With Carbsteady ButterPecan 8oz Carton PO SCH ×3 (08:00→21:11)
[2020-01-08] MEDS: CILOSTAZOL 100 MG TAB PO SCH ×2 (10:00→22:09)
[2020-01-08] MEDS: INSULIN LANTUS (GLARGINE) 1 /0.01ml (100units/ml) SC SCH ×2 (10:00→22:11)
[2020-01-08] MEDS: CHOLECALCIFEROL (VITD3) 1,000UNIT=25mCg TAB PO SCH (10:00)
[2020-01-08] MEDS: SODIUM CHLOR 0.9% PF (SALINE LOCK) 10ML VIAL/SYR IV SCH ×2 (10:19→22:09)
[2020-01-08] MEDS: MEROPENEM 500MG IVPB 50 ML IV SCH ×2 (10:19→22:09)
[2020-01-08] MEDS: PANTOPRAZOLE 40 MG/10 ML VIAL INJ IV SCH ×2 (10:19→22:11)
[2020-01-08] MEDS: HEPARIN SODIUM (PORCINE) 5000 UNITS/ML 1ML VIAL SC SCH ×2 (10:20→22:00)
[2020-01-08] MEDS: fentaNYL Drip 2500mCg/250mlNS 250 ML IV SCH (11:40)
[2020-01-08] MEDS: METOCLOPRAMIDE HCL 5MG/ml INJ 2ml VIAL IV SCH ×2 (12:57→22:09)
[2020-01-08] MEDS: NYSTATIN TOPICAL POWDER 15GM TOP SCH ×2 (13:50→22:12)
[2020-01-08] MEDS ORDERED: METOCLOPRAMIDE HCL 5MG/ml INJ 2ml VIAL IV SCH (14:00)
[2020-01-08] MEDS: LATANOPROST 0.005 % OPTH(EYE) SOL 2.5ML LEFTEYE SCH (22:09)
[2020-01-08] MEDS: ATORVASTATIN 20 MG TAB PO SCH (22:09)
[2020-01-09] VITALS (96 sets, daily range): BP systolic 62–144; BP diastolic 17–54
[2020-01-09] MEDS: LEVALBUTEROL HCL 1.25 MG/3 ML NEB NEB SCH ×4 (00:05→18:39)
[2020-01-09] MEDS: MIDAZOLAM DRIP 50 mg/50mL 50 ML IV SCH ×2 (01:28→12:19)
[2020-01-09] MEDS: NOREPINEPHRINE 8 MG/250ML KIT 250 ML IV SCH ×5 (03:17→21:21)
[2020-01-09] MEDS: VANCOMYCIN HCL 125MG/5ML ORAL SOL PO SCH ×4 (05:31→22:29)
[2020-01-09] MEDS: metroNIDAZOLE 500MG/100ML 100 ML IV SCH ×3 (05:31→22:00)
[2020-01-09] MEDS: InsuLIN REG 1unit/0.01ml Soln (100units/ml) SC SCH ×4 (05:32→17:48)
[2020-01-09] MEDS: ACCU-CHEK COMFORT CURVE STRIP VI SCH ×4 (05:32→17:49)
[2020-01-09] MEDS: LEVOTHYROXINE SODIUM 25 MCG TAB PO SCH (07:00)
[2020-01-09 09:22] LABS: Basophils # (auto) 0.1 10 ^3/uL (0-0.2); Hemoglobin 7.8 g/dL (12.2-16.2); Lymphocytes # (auto) 1.6 10 ^3/uL (0.4-5.4)
[2020-01-09 09:25] LABS: Basophils % (auto) 0.8 % (0.0-2.0); Eosinophils # (auto) 0.3 10 ^3/uL (0-0.8); Eosinophils % (auto) 1.9 % (0.0-7.0); Hematocrit 24.6 % (36.0-46.0); Lymphocytes % (auto) 9.3 % (10.0-50.0); Mean Corpuscular Hgb Conc. 31.7 g/dL (32.0-36.0); Mean Corpuscular Volume 91.4 fL (80.0-100.0); Monocytes # (auto) 0.9 10 ^3/uL (0-1.3); Monocytes % (auto) 5.1 % (0.0-12.0); Neutrophils # (auto) 14.4 10 ^3/uL (1.6-8.6); Neutrophils % (auto) 82.9 % (37.0-80.0); Nucleated Red Blood Cells % 0.2 %; Platelet Count (auto) 165 10^3/uL (140-450); Red Blood Cells 2.69 10^6/uL (4.0-5.20); White Blood Cell 17.3 10^3/uL (4.4-10.8)
[2020-01-09 09:38] LABS: Anion Gap 11 (5-15); Blood Urea Nitrogen 46 mg/dL (7-18); Calcium 7.1 mg/dL (8.5-10.1); Carbon Dioxide 18 mmol/L (21-32); Chloride 101 mmol/L (98-107); Glucose 158 mg/dL (74-106); Potassium 4.3 mmol/L (3.5-5.1); Sodium 130 mmol/L (136-145)
[2020-01-09 09:43] LABS: Alanine Aminotransferase < 6 U/L (13-56); Alkaline Phosphatase 178 U/L (45-117); Aspartate Aminotransferase 15 U/L (15-37); Bilirubin, Total 0.3 mg/dL (0.2-1.0); GFR African American 8 mL/min; GFR Non-African American 7 mL/min; Total Protein 4.2 g/dL (6.4-8.2)
[2020-01-09 09:44] LABS: Albumin 0.9 g/dL (3.4-5.0)
[2020-01-09] MEDS: PHENYLEPHRINE INJ 40 MG in SODIUM CHL 0.9% 250 ML IV SCH ×4 (09:54→21:22)
[2020-01-09] MEDS: PANTOPRAZOLE 40 MG/10 ML VIAL INJ IV SCH ×2 (10:22→22:00)
[2020-01-09] MEDS: METOCLOPRAMIDE HCL 5MG/ml INJ 2ml VIAL IV SCH ×2 (10:22→22:00)
[2020-01-09] MEDS: SODIUM CHLOR 0.9% PF (SALINE LOCK) 10ML VIAL/SYR IV SCH ×2 (10:23→22:00)
[2020-01-09] MEDS: CHOLECALCIFEROL (VITD3) 1,000UNIT=25mCg TAB PO SCH (10:23)
[2020-01-09] MEDS: MEROPENEM 500MG IVPB 50 ML IV SCH ×2 (10:23→22:00)
[2020-01-09] MEDS: NYSTATIN TOPICAL POWDER 15GM TOP SCH ×2 (10:24→22:28)
[2020-01-09] MEDS: CILOSTAZOL 100 MG TAB PO SCH ×2 (10:25→22:28)
[2020-01-09] MEDS: HEPARIN SODIUM (PORCINE) 5000 UNITS/ML 1ML VIAL SC SCH ×2 (10:25→22:27)
[2020-01-09] MEDS: INSULIN LANTUS (GLARGINE) 1 /0.01ml (100units/ml) SC SCH ×2 (10:25→22:28)
[2020-01-09] MEDS: fentaNYL Drip 2500mCg/250mlNS 250 ML IV SCH ×2 (10:45→17:25)
[2020-01-09] MEDS: ALBUMIN 25% 100 ML IV SCH ×2 (14:15→20:43)
[2020-01-09] MEDS ORDERED: HYDROCORTISONE SOD SUCC 100 MG/2ML INJ VIAL IV ONE (14:45)
[2020-01-09] MEDS ORDERED: SODIUM CHL 0.9% 1000 ML BAG XX ONE (15:45)
[2020-01-09] MEDS ORDERED: VASOPRESSIN 20 UNIT/ML ONE (16:25)
[2020-01-09] MEDS: VASOPRESSIN 50 UNITS in D5W 5% 247.5 ML IV SCH (16:25)
[2020-01-09] MEDS: Nepro With Carbsteady ButterPecan 8oz Carton PO SCH (18:00)
[2020-01-09] MEDS ORDERED: EPOETIN ALFA 4,000 UNIT/ML VL SC ONE (21:00)
[2020-01-09] MEDS: HYDROCORTISONE SOD SUCC 100 MG/2ML INJ VIAL IV SCH (22:00)
[2020-01-09] MEDS: LATANOPROST 0.005 % OPTH(EYE) SOL 2.5ML LEFTEYE SCH (22:21)
[2020-01-09] MEDS: ATORVASTATIN 20 MG TAB PO SCH (22:29)
[2020-01-10] VITALS (104 sets, daily range): BP systolic 87–161; BP diastolic 27–59
[2020-01-10] MEDS: ACCU-CHEK COMFORT CURVE STRIP VI SCH ×4 (00:08→17:53)
[2020-01-10] MEDS: LEVALBUTEROL HCL 1.25 MG/3 ML NEB NEB SCH ×4 (00:34→18:30)
[2020-01-10] MEDS: PHENYLEPHRINE INJ 40 MG in SODIUM CHL 0.9% 250 ML IV SCH ×6 (00:41→19:36)
[2020-01-10] MEDS: NOREPINEPHRINE 8 MG/250ML KIT 250 ML IV SCH ×4 (00:41→20:20)
[2020-01-10] MEDS: MIDAZOLAM DRIP 50 mg/50mL 50 ML IV SCH ×3 (00:42→17:52)
[2020-01-10 04:42] LABS: Basophils # (auto) 0 10 ^3/uL (0-0.2); Lymphocytes # (auto) 0.5 10 ^3/uL (0.4-5.4); Monocytes # (auto) 0.3 10 ^3/uL (0-1.3); Monocytes % (auto) 1.6 % (0.0-12.0); Nucleated Red Blood Cells % 0.1 %
[2020-01-10 04:44] LABS: Basophils % (auto) 0.1 % (0.0-2.0); Eosinophils # (auto) 0.1 10 ^3/uL (0-0.8); Eosinophils % (auto) 0.3 % (0.0-7.0); Hematocrit 19.4 % (36.0-46.0); Lymphocytes % (auto) 2.5 % (10.0-50.0); Mean Corpuscular Hemoglobin 29.2 pg (28.0-32.0); Mean Corpuscular Hgb Conc. 32.6 g/dL (32.0-36.0); Mean Corpuscular Volume 89.5 fL (80.0-100.0); Neutrophils # (auto) 20.3 10 ^3/uL (1.6-8.6); Neutrophils % (auto) 95.5 % (37.0-80.0); Platelet Count (auto) 120 10^3/uL (140-450); Red Blood Cells 2.17 10^6/uL (4.0-5.20); Red Cell Distribution Width 16.9 % (11.8-14.3); White Blood Cell 21.3 10^3/uL (4.4-10.8)
[2020-01-10 04:51] LABS: Chloride 99 mmol/L (98-107); Sodium 130 mmol/L (136-145)
[2020-01-10 04:54] LABS: Hemoglobin 6.3 g/dL (12.2-16.2)
[2020-01-10 04:58] LABS: Alanine Aminotransferase < 6 U/L (13-56); Albumin 1.5 g/dL (3.4-5.0); Alkaline Phosphatase 153 U/L (45-117); Anion Gap 9 (5-15); Aspartate Aminotransferase 19 U/L (15-37); BUN/Creatinine Ratio 6.3; Bilirubin, Total 0.5 mg/dL (0.2-1.0); Blood Urea Nitrogen 22 mg/dL (7-18); Calcium 6.2 mg/dL (8.5-10.1); Carbon Dioxide 22 mmol/L (21-32); GFR African American 17 mL/min; GFR Non-African American 14 mL/min; Glucose 326 mg/dL (74-106)
[2020-01-10] MEDS ORDERED: POTASSIUM CHL 20MEQ/100ML 100 ML IV ONE (05:30)
[2020-01-10] MEDS: InsuLIN REG 1unit/0.01ml Soln (100units/ml) SC SCH ×4 (06:00→18:08)
[2020-01-10] MEDS: ALBUMIN 25% 100 ML IV SCH (06:16)
[2020-01-10] MEDS: VANCOMYCIN HCL 125MG/5ML ORAL SOL PO SCH ×4 (06:16→21:36)
[2020-01-10] MEDS: metroNIDAZOLE 500MG/100ML 100 ML IV SCH ×3 (06:17→21:35)
[2020-01-10] MEDS: Nepro With Carbsteady ButterPecan 8oz Carton PO SCH ×2 (07:21→17:51)
[2020-01-10] MEDS: LEVOTHYROXINE SODIUM 25 MCG TAB PO SCH (07:21)
[2020-01-10] MEDS: INSULIN LANTUS (GLARGINE) 1 /0.01ml (100units/ml) SC SCH ×2 (10:00→21:56)
[2020-01-10] MEDS: HEPARIN SODIUM (PORCINE) 5000 UNITS/ML 1ML VIAL SC SCH ×3 (10:00→21:37)
[2020-01-10] MEDS: SODIUM CHLOR 0.9% PF (SALINE LOCK) 10ML VIAL/SYR IV SCH ×2 (10:35→21:35)
[2020-01-10] MEDS: NYSTATIN TOPICAL POWDER 15GM TOP SCH ×2 (10:35→21:37)
[2020-01-10] MEDS: CHOLECALCIFEROL (VITD3) 1,000UNIT=25mCg TAB PO SCH (10:35)
[2020-01-10] MEDS: HYDROCORTISONE SOD SUCC 100 MG/2ML INJ VIAL IV SCH ×2 (10:37→21:35)
[2020-01-10] MEDS: CILOSTAZOL 100 MG TAB PO SCH ×2 (10:39→21:37)
[2020-01-10] MEDS: METOCLOPRAMIDE HCL 5MG/ml INJ 2ml VIAL IV SCH ×2 (10:42→21:35)
[2020-01-10] MEDS: MEROPENEM 500MG IVPB 50 ML IV SCH ×2 (10:44→21:35)
[2020-01-10] MEDS: PANTOPRAZOLE 40 MG/10 ML VIAL INJ IV SCH ×2 (10:44→21:35)
[2020-01-10] MEDS ORDERED: TPN PER PHARMACY 0 ML IV SCH (12:00)
[2020-01-10] MEDS ORDERED: POLYETHYLENE GLYCOL 17 GM PWDR PO PRN (12:00)
[2020-01-10 12:54] LABS: Magnesium 1.6 mg/dL (1.6-2.6)
[2020-01-10] MEDS ORDERED: MAGNESIUM SULFATE 1GM/100ML 100 ML IV ONE (15:15)
[2020-01-10] MEDS: VASOPRESSIN 50 UNITS in D5W 5% 247.5 ML IV SCH (16:30)
[2020-01-10] MEDS ORDERED: TPN PER PHARMACY IV NR ×9 (20:00)
[2020-01-10] MEDS: fentaNYL Drip 2500mCg/250mlNS 250 ML IV SCH (21:00)
[2020-01-10] MEDS: ATORVASTATIN 20 MG TAB PO SCH (21:36)
[2020-01-10] MEDS: LATANOPROST 0.005 % OPTH(EYE) SOL 2.5ML LEFTEYE SCH (21:55)
[2020-01-11] VITALS (107 sets, daily range): BP systolic 84–151; BP diastolic 24–88
[2020-01-11] MEDS: NOREPINEPHRINE 8 MG/250ML KIT 250 ML IV SCH ×3 (00:30→23:50)
[2020-01-11] MEDS: InsuLIN REG 1unit/0.01ml Soln (100units/ml) SC SCH ×4 (00:30→18:56)
[2020-01-11] MEDS: ACCU-CHEK COMFORT CURVE STRIP VI SCH ×5 (00:30→23:50)
[2020-01-11] MEDS: metroNIDAZOLE 500MG/100ML 100 ML IV SCH ×3 (05:57→21:58)
[2020-01-11] MEDS: VANCOMYCIN HCL 125MG/5ML ORAL SOL PO SCH ×4 (05:57→22:05)
[2020-01-11] MEDS: MIDAZOLAM DRIP 50 mg/50mL 50 ML IV SCH (06:03)
[2020-01-11] MEDS: LEVALBUTEROL HCL 1.25 MG/3 ML NEB NEB SCH ×4 (06:30→18:17)
[2020-01-11] MEDS: LEVOTHYROXINE SODIUM 25 MCG TAB PO SCH (06:34)
[2020-01-11 07:45] LABS: Eosinophils # (auto) 0 10 ^3/uL (0-0.8); Lymphocytes # (auto) 0.7 10 ^3/uL (0.4-5.4); Lymphocytes % (auto) 3.6 % (10.0-50.0); Platelet Count (auto) 101 10^3/uL (140-450)
[2020-01-11 07:47] LABS: Basophils # (auto) 0 10 ^3/uL (0-0.2); Basophils % (auto) 0.2 % (0.0-2.0); Hematocrit 21.5 % (36.0-46.0); Mean Corpuscular Hemoglobin 29.4 pg (28.0-32.0); Mean Corpuscular Hgb Conc. 32.2 g/dL (32.0-36.0); Mean Corpuscular Volume 91.4 fL (80.0-100.0); Monocytes # (auto) 0.6 10 ^3/uL (0-1.3); Monocytes % (auto) 3.3 % (0.0-12.0); Neutrophils # (auto) 17.8 10 ^3/uL (1.6-8.6); Neutrophils % (auto) 92.9 % (37.0-80.0); Nucleated Red Blood Cells % 0.2 %; Red Blood Cells 2.35 10^6/uL (4.0-5.20); Red Cell Distribution Width 17.1 % (11.8-14.3); White Blood Cell 19.1 10^3/uL (4.4-10.8)
[2020-01-11 07:51] LABS: Hemoglobin 6.9 g/dL (12.2-16.2)
[2020-01-11] MEDS: Nepro With Carbsteady ButterPecan 8oz Carton PO SCH ×2 (08:00→18:00)
[2020-01-11 08:15] LABS: Albumin 1.6 g/dL (3.4-5.0); Anion Gap 8 (5-15); Blood Urea Nitrogen 27 mg/dL (7-18); Calcium 7.3 mg/dL (8.5-10.1); Carbon Dioxide 23 mmol/L (21-32); Chloride 100 mmol/L (98-107); Glucose 316 mg/dL (74-106); Magnesium 2.1 mg/dL (1.6-2.6); Potassium 3.4 mmol/L (3.5-5.1); Sodium 131 mmol/L (136-145)
[2020-01-11 08:19] LABS: Alanine Aminotransferase < 6 U/L (13-56); Alkaline Phosphatase 178 U/L (45-117); Aspartate Aminotransferase 15 U/L (15-37); BUN/Creatinine Ratio 6.1; Bilirubin, Total 0.4 mg/dL (0.2-1.0); GFR African American 13 mL/min; GFR Non-African American 11 mL/min; Phosphorus 4.8 mg/dL (2.5-4.90); Pre Albumin 3.7 mg/dL (20.0-40.0); Total Protein 4.3 g/dL (6.4-8.2); Triglycerides 45 mg/dL (< 150)
[2020-01-11] MEDS ORDERED: SODIUM CHL 0.9% 1000 ML BAG XX ONE (09:00)
[2020-01-11] MEDS: INSULIN LANTUS (GLARGINE) 1 /0.01ml (100units/ml) SC SCH ×2 (10:00→22:01)
[2020-01-11] MEDS: SODIUM CHLOR 0.9% PF (SALINE LOCK) 10ML VIAL/SYR IV SCH ×2 (10:00→21:57)
[2020-01-11] MEDS: HYDROCORTISONE SOD SUCC 100 MG/2ML INJ VIAL IV SCH ×2 (10:54→21:57)
[2020-01-11] MEDS: CHOLECALCIFEROL (VITD3) 1,000UNIT=25mCg TAB PO SCH (10:54)
[2020-01-11] MEDS: PANTOPRAZOLE 40 MG/10 ML VIAL INJ IV SCH ×2 (10:54→21:57)
[2020-01-11] MEDS: HEPARIN SODIUM (PORCINE) 5000 UNITS/ML 1ML VIAL SC SCH ×2 (10:55→22:01)
[2020-01-11] MEDS: NYSTATIN TOPICAL POWDER 15GM TOP SCH ×2 (10:55→22:02)
[2020-01-11] MEDS: CILOSTAZOL 100 MG TAB PO SCH ×2 (10:55→21:57)
[2020-01-11] MEDS: METOCLOPRAMIDE HCL 5MG/ml INJ 2ml VIAL IV SCH ×2 (10:58→21:57)
[2020-01-11] MEDS: MEROPENEM 500MG IVPB 50 ML IV SCH ×2 (10:59→21:59)
[2020-01-11] MEDS ORDERED: VANCOMYCIN 500 MG in D5W 5% 100 ML IV ONE (12:00)
[2020-01-11] MEDS: VASOPRESSIN 50 UNITS in D5W 5% 247.5 ML IV SCH (16:30)
[2020-01-11] MEDS ORDERED: TPN PER PHARMACY IV NR ×8 (20:00)
[2020-01-11 20:55] LABS: Hemoglobin 7.6 g/dL (12.2-16.2)
[2020-01-11] MEDS ORDERED: EPOETIN ALFA 10,000 UNIT/1 ML VIAL SC ONE (21:00)
[2020-01-11] MEDS: ATORVASTATIN 20 MG TAB PO SCH (21:57)
[2020-01-11] MEDS: LATANOPROST 0.005 % OPTH(EYE) SOL 2.5ML LEFTEYE SCH (21:58)
[2020-01-11] MEDS: fentaNYL Drip 2500mCg/250mlNS 250 ML IV SCH (22:00)
[2020-01-12] VITALS (101 sets, daily range): BP systolic 82–139; BP diastolic 23–58
[2020-01-12] MEDS: InsuLIN REG 1unit/0.01ml Soln (100units/ml) SC SCH ×4 (00:01→18:28)
[2020-01-12] MEDS: PHENYLEPHRINE INJ 40 MG in SODIUM CHL 0.9% 250 ML IV SCH ×2 (00:20→12:36)
[2020-01-12] MEDS: LEVALBUTEROL HCL 1.25 MG/3 ML NEB NEB SCH ×4 (00:30→18:18)
[2020-01-12 04:42] LABS: Basophils # (auto) 0 10 ^3/uL (0-0.2); Eosinophils # (auto) 0 10 ^3/uL (0-0.8); Monocytes # (auto) 0.6 10 ^3/uL (0-1.3); Monocytes % (auto) 3.5 % (0.0-12.0)
[2020-01-12 04:45] LABS: Hematocrit 21.6 % (36.0-46.0); Hemoglobin 7.2 g/dL (12.2-16.2); Lymphocytes # (auto) 0.7 10 ^3/uL (0.4-5.4); Lymphocytes % (auto) 3.9 % (10.0-50.0); Mean Corpuscular Hemoglobin 30.1 pg (28.0-32.0); Mean Corpuscular Hgb Conc. 33.4 g/dL (32.0-36.0); Neutrophils # (auto) 15.6 10 ^3/uL (1.6-8.6); Neutrophils % (auto) 92.6 % (37.0-80.0); Nucleated Red Blood Cells % 0.1 %; Platelet Count (auto) 64 10^3/uL (140-450); Red Cell Distribution Width 16.5 % (11.8-14.3); White Blood Cell 16.8 10^3/uL (4.4-10.8)
[2020-01-12 05:13] LABS: Albumin 1.5 g/dL (3.4-5.0); Anion Gap 8 (5-15); Blood Urea Nitrogen 22 mg/dL (7-18); Calcium 7.5 mg/dL (8.5-10.1); Carbon Dioxide 28 mmol/L (21-32); Chloride 99 mmol/L (98-107); Glucose 242 mg/dL (74-106); Magnesium 1.7 mg/dL (1.6-2.6); Potassium 3.2 mmol/L (3.5-5.1); Sodium 135 mmol/L (136-145)
[2020-01-12 05:17] LABS: Alanine Aminotransferase < 6 U/L (13-56); Aspartate Aminotransferase 12 U/L (15-37); BUN/Creatinine Ratio 6.8; GFR African American 18 mL/min; GFR Non-African American 15 mL/min; Total Protein 4.5 g/dL (6.4-8.2)
[2020-01-12 05:23] LABS: Alkaline Phosphatase 170 U/L (45-117); Bilirubin, Total 0.4 mg/dL (0.2-1.0)
[2020-01-12] MEDS: metroNIDAZOLE 500MG/100ML 100 ML IV SCH (05:46)
[2020-01-12] MEDS: ACCU-CHEK COMFORT CURVE STRIP VI SCH ×3 (05:56→17:55)
[2020-01-12] MEDS: VANCOMYCIN HCL 125MG/5ML ORAL SOL PO SCH ×4 (06:19→22:43)
[2020-01-12] MEDS: LEVOTHYROXINE SODIUM 25 MCG TAB PO SCH (06:51)
[2020-01-12] MEDS: Nepro With Carbsteady ButterPecan 8oz Carton PO SCH ×2 (08:00→12:36)
[2020-01-12] MEDS: METOCLOPRAMIDE HCL 5MG/ml INJ 2ml VIAL IV SCH ×2 (10:44→22:42)
[2020-01-12] MEDS: HYDROCORTISONE SOD SUCC 100 MG/2ML INJ VIAL IV SCH (10:44)
[2020-01-12] MEDS: CHOLECALCIFEROL (VITD3) 1,000UNIT=25mCg TAB PO SCH (10:44)
[2020-01-12] MEDS: CILOSTAZOL 100 MG TAB PO SCH ×2 (10:44→22:43)
[2020-01-12] MEDS: NYSTATIN TOPICAL POWDER 15GM TOP SCH ×2 (10:44→23:11)
[2020-01-12] MEDS: SODIUM CHLOR 0.9% PF (SALINE LOCK) 10ML VIAL/SYR IV SCH ×2 (10:44→22:42)
[2020-01-12] MEDS: PANTOPRAZOLE 40 MG/10 ML VIAL INJ IV SCH ×2 (10:44→22:28)
[2020-01-12] MEDS: MIDAZOLAM DRIP 50 mg/50mL 50 ML IV SCH (10:45)
[2020-01-12] MEDS ORDERED: LACTULOSE 20Gm/30ML SOLN ONE (10:47)
[2020-01-12] MEDS: INSULIN LANTUS (GLARGINE) 1 /0.01ml (100units/ml) SC SCH ×2 (10:48→23:05)
[2020-01-12] MEDS: HEPARIN SODIUM (PORCINE) 5000 UNITS/ML 1ML VIAL SC SCH (10:48)
[2020-01-12] MEDS: MEROPENEM 500MG IVPB 50 ML IV SCH ×2 (10:50→22:42)
[2020-01-12] MEDS: LACTULOSE 20Gm/30ML SOLN PO SCH ×2 (10:50→22:42)
[2020-01-12] MEDS: VASOPRESSIN 50 UNITS in D5W 5% 247.5 ML IV SCH (12:36)
[2020-01-12] MEDS: POTASSIUM CHL 20MEQ/100ML 100 ML IV SCH ×2 (14:59→16:00)
[2020-01-12] MEDS ORDERED: TPN PER PHARMACY IV NR ×10 (20:00)
[2020-01-12] MEDS: LATANOPROST 0.005 % OPTH(EYE) SOL 2.5ML LEFTEYE SCH (22:42)
[2020-01-12] MEDS: ATORVASTATIN 20 MG TAB PO SCH (22:43)
[2020-01-13] VITALS (107 sets, daily range): BP systolic 77–143; BP diastolic 22–79
[2020-01-13] MEDS: ACCU-CHEK COMFORT CURVE STRIP VI SCH ×4 (00:07→18:16)
[2020-01-13] MEDS: InsuLIN REG 1unit/0.01ml Soln (100units/ml) SC SCH ×3 (00:17→12:29)
[2020-01-13] MEDS: LEVALBUTEROL HCL 1.25 MG/3 ML NEB NEB SCH ×4 (00:28→18:22)
[2020-01-13 05:21] LABS: Basophils # (auto) 0 10 ^3/uL (0-0.2); Basophils % (auto) 0.1 % (0.0-2.0); Eosinophils # (auto) 0 10 ^3/uL (0-0.8); Eosinophils % (auto) 0.1 % (0.0-7.0); Hematocrit 19.3 % (36.0-46.0); Lymphocytes # (auto) 0.8 10 ^3/uL (0.4-5.4); Lymphocytes % (auto) 4.8 % (10.0-50.0); Mean Corpuscular Hemoglobin 28.1 pg (28.0-32.0); Mean Corpuscular Hgb Conc. 30.9 g/dL (32.0-36.0); Mean Corpuscular Volume 90.8 fL (80.0-100.0); Monocytes # (auto) 0.6 10 ^3/uL (0-1.3); Monocytes % (auto) 3.8 % (0.0-12.0); Neutrophils # (auto) 14.8 10 ^3/uL (1.6-8.6); Neutrophils % (auto) 91.2 % (37.0-80.0); Nucleated Red Blood Cells % 0.4 %; Platelet Count (auto) 55 10^3/uL (140-450); Red Blood Cells 2.12 10^6/uL (4.0-5.20); Red Cell Distribution Width 16.7 % (11.8-14.3); White Blood Cell 16.2 10^3/uL (4.4-10.8)
[2020-01-13 05:39] LABS: Albumin 1.3 g/dL (3.4-5.0); Anion Gap 9 (5-15); Blood Urea Nitrogen 35 mg/dL (7-18); Calcium 7.3 mg/dL (8.5-10.1); Carbon Dioxide 25 mmol/L (21-32); Chloride 99 mmol/L (98-107); Glucose 185 mg/dL (74-106); Potassium 3.6 mmol/L (3.5-5.1); Sodium 133 mmol/L (136-145)
[2020-01-13 05:41] LABS: Alanine Aminotransferase < 6 U/L (13-56); Alkaline Phosphatase 150 U/L (45-117); Aspartate Aminotransferase 13 U/L (15-37); BUN/Creatinine Ratio 10.2; Bilirubin, Total 0.4 mg/dL (0.2-1.0); GFR African American 17 mL/min; GFR Non-African American 14 mL/min; Phosphorus 2.6 mg/dL (2.5-4.90); Total Protein 4.1 g/dL (6.4-8.2)
[2020-01-13] MEDS: VANCOMYCIN HCL 125MG/5ML ORAL SOL PO SCH ×4 (06:32→21:57)
[2020-01-13] MEDS: LEVOTHYROXINE SODIUM 25 MCG TAB PO SCH (06:40)
[2020-01-13] MEDS ORDERED: SODIUM CHL 0.9% 1000 ML BAG XX ONE (07:00)
[2020-01-13] MEDS: Nepro With Carbsteady ButterPecan 8oz Carton PO SCH ×2 (08:00→14:42)
[2020-01-13] MEDS: PHENYLEPHRINE INJ 40 MG in SODIUM CHL 0.9% 250 ML IV SCH (09:40)
[2020-01-13] MEDS: NYSTATIN TOPICAL POWDER 15GM TOP SCH ×2 (10:00→22:30)
[2020-01-13] MEDS: SODIUM CHLOR 0.9% PF (SALINE LOCK) 10ML VIAL/SYR IV SCH ×2 (10:00→22:30)
[2020-01-13] MEDS: CILOSTAZOL 100 MG TAB PO SCH ×2 (10:00→21:58)
[2020-01-13] MEDS: fentaNYL Drip 2500mCg/250mlNS 250 ML IV SCH (10:45)
[2020-01-13] MEDS: MIDAZOLAM DRIP 50 mg/50mL 50 ML IV SCH (10:45)
[2020-01-13] MEDS: INSULIN LANTUS (GLARGINE) 1 /0.01ml (100units/ml) SC SCH ×2 (12:30→22:06)
[2020-01-13] MEDS: VASOPRESSIN 50 UNITS in D5W 5% 247.5 ML IV SCH (14:41)
[2020-01-13] MEDS: NOREPINEPHRINE 8 MG/250ML KIT 250 ML IV SCH ×2 (14:42→18:20)
[2020-01-13] MEDS: CHOLECALCIFEROL (VITD3) 1,000UNIT=25mCg TAB PO SCH (14:53)
[2020-01-13] MEDS: PANTOPRAZOLE 40 MG/10 ML VIAL INJ IV SCH ×2 (14:53→21:58)
[2020-01-13] MEDS: LACTULOSE 20Gm/30ML SOLN PO SCH ×2 (14:53→21:57)
[2020-01-13] MEDS: METOCLOPRAMIDE HCL 5MG/ml INJ 2ml VIAL IV SCH ×2 (14:54→21:58)
[2020-01-13] MEDS ORDERED: FAT EMULSION IV NR ×10 (20:00)
[2020-01-13] MEDS ORDERED: SODIUM ACETATE IV NR ×10 (20:00)
[2020-01-13] MEDS ORDERED: SODIUM PHOSPHATES IV NR ×10 (20:00)
[2020-01-13] MEDS ORDERED: [UNRECOGNIZED DRUG - OTHER] IV NR ×10 (20:00)
[2020-01-13] MEDS: MORPHINE SULF INJ 2 MG/ML SYRINGE 1ML IV PRN (20:55)
[2020-01-13] MEDS ORDERED: EPOETIN ALFA 10,000 UNIT/1 ML VIAL SC ONE (21:00)
[2020-01-13] MEDS: LATANOPROST 0.005 % OPTH(EYE) SOL 2.5ML LEFTEYE SCH (21:58)
[2020-01-13] MEDS: ATORVASTATIN 20 MG TAB PO SCH (21:58)
[2020-01-14] VITALS (102 sets, daily range): BP systolic 63–121; BP diastolic 17–93
[2020-01-14] MEDS: LEVALBUTEROL HCL 1.25 MG/3 ML NEB NEB SCH ×4 (00:14→18:06)
[2020-01-14] MEDS: InsuLIN REG 1unit/0.01ml Soln (100units/ml) SC SCH ×4 (02:11→18:15)
[2020-01-14] MEDS: ACCU-CHEK COMFORT CURVE STRIP VI SCH ×4 (02:11→17:56)
[2020-01-14] MEDS: MORPHINE SULF INJ 2 MG/ML SYRINGE 1ML IV PRN ×3 (02:19→12:00)
[2020-01-14 05:03] LABS: Basophils # (auto) 0 10 ^3/uL (0-0.2); Basophils % (auto) 0.1 % (0.0-2.0); Eosinophils # (auto) 0.1 10 ^3/uL (0-0.8); Eosinophils % (auto) 0.5 % (0.0-7.0); Hemoglobin 7.3 g/dL (12.2-16.2); Mean Corpuscular Hemoglobin 28.6 pg (28.0-32.0); Monocytes # (auto) 0.4 10 ^3/uL (0-1.3); Monocytes % (auto) 2.7 % (0.0-12.0)
[2020-01-14 05:06] LABS: Hematocrit 22.6 % (36.0-46.0); Lymphocytes # (auto) 1.5 10 ^3/uL (0.4-5.4); Lymphocytes % (auto) 9.2 % (10.0-50.0); Mean Corpuscular Hgb Conc. 32.2 g/dL (32.0-36.0); Mean Corpuscular Volume 88.9 fL (80.0-100.0); Neutrophils # (auto) 14.7 10 ^3/uL (1.6-8.6); Neutrophils % (auto) 87.5 % (37.0-80.0); Nucleated Red Blood Cells % 0.6 %; Platelet Count (auto) 60 10^3/uL (140-450); Red Blood Cells 2.54 10^6/uL (4.0-5.20); Red Cell Distribution Width 16.6 % (11.8-14.3); White Blood Cell 16.8 10^3/uL (4.4-10.8)
[2020-01-14 05:34] LABS: Potassium 3.2 mmol/L (3.5-5.1)
[2020-01-14 05:45] LABS: Albumin 1.3 g/dL (3.4-5.0); BUN/Creatinine Ratio 10.5; Bilirubin, Total 0.5 mg/dL (0.2-1.0); Calcium 7.5 mg/dL (8.5-10.1); Magnesium 2.1 mg/dL (1.6-2.6); Phosphorus 1.9 mg/dL (2.5-4.90); Total Protein 4.4 g/dL (6.4-8.2)
[2020-01-14] MEDS: VANCOMYCIN HCL 125MG/5ML ORAL SOL PO SCH ×4 (06:14→22:21)
[2020-01-14] MEDS: LEVOTHYROXINE SODIUM 25 MCG TAB PO SCH (06:17)
[2020-01-14] MEDS: Nepro With Carbsteady ButterPecan 8oz Carton PO SCH ×2 (08:00→17:56)
[2020-01-14] MEDS: PHENYLEPHRINE INJ 40 MG in SODIUM CHL 0.9% 250 ML IV SCH ×2 (08:08→19:00)
[2020-01-14] MEDS: cefTRIAXone 1GM/50ML D5W 50 ML IV SCH (09:04)
[2020-01-14] MEDS ORDERED: POTASSIUM PHOSP 22MEQ(15MMOLE) in NS 100 ML IV ONE (09:30)
[2020-01-14] MEDS: NOREPINEPHRINE 8 MG/250ML KIT 250 ML IV SCH ×3 (10:35→23:44)
[2020-01-14] MEDS: CILOSTAZOL 100 MG TAB PO SCH ×2 (10:40→22:21)
[2020-01-14] MEDS: METOCLOPRAMIDE HCL 5MG/ml INJ 2ml VIAL IV SCH ×2 (10:40→22:21)
[2020-01-14] MEDS: CHOLECALCIFEROL (VITD3) 1,000UNIT=25mCg TAB PO SCH (10:40)
[2020-01-14] MEDS: LACTULOSE 20Gm/30ML SOLN PO SCH ×2 (10:41→22:21)
[2020-01-14] MEDS: INSULIN LANTUS (GLARGINE) 1 /0.01ml (100units/ml) SC SCH ×2 (10:41→22:00)
[2020-01-14] MEDS: NYSTATIN TOPICAL POWDER 15GM TOP SCH ×2 (10:42→22:21)
[2020-01-14] MEDS: MIDAZOLAM DRIP 50 mg/50mL 50 ML IV SCH (10:45)
[2020-01-14] MEDS: PANTOPRAZOLE 40 MG/10 ML VIAL INJ IV SCH ×2 (10:53→22:21)
[2020-01-14] MEDS: SODIUM CHLOR 0.9% PF (SALINE LOCK) 10ML VIAL/SYR IV SCH ×2 (10:57→22:21)
[2020-01-14] MEDS: fentaNYL Drip 2500mCg/250mlNS 250 ML IV SCH ×3 (11:15→23:42)
[2020-01-14] MEDS: VASOPRESSIN 50 UNITS in D5W 5% 247.5 ML IV SCH ×2 (16:30→22:00)
[2020-01-14] MEDS: MORPHINE SULFATE 4 MG/ML SYR/VIAL IV PRN (19:13)
[2020-01-14] MEDS ORDERED: TPN PER PHARMACY IV NR ×10 (20:00)
[2020-01-14] MEDS: ATORVASTATIN 20 MG TAB PO SCH (22:21)
[2020-01-14] MEDS: LATANOPROST 0.005 % OPTH(EYE) SOL 2.5ML LEFTEYE SCH (22:21)
[2020-01-15] VITALS (89 sets, daily range): BP systolic 86–203; BP diastolic 15–65
[2020-01-15] MEDS: ACCU-CHEK COMFORT CURVE STRIP VI SCH ×4 (00:11→17:31)
[2020-01-15] MEDS: InsuLIN REG 1unit/0.01ml Soln (100units/ml) SC SCH ×4 (00:12→17:14)
[2020-01-15] MEDS: LEVALBUTEROL HCL 1.25 MG/3 ML NEB NEB SCH ×4 (00:22→18:24)
[2020-01-15] MEDS: MIDAZOLAM DRIP 50 mg/50mL 50 ML IV SCH ×2 (03:10→12:00)
[2020-01-15 03:33] LABS: Eosinophils # (auto) 0.4 10 ^3/uL (0-0.8); Hemoglobin 7.4 g/dL (12.2-16.2); Monocytes # (auto) 0.8 10 ^3/uL (0-1.3); Neutrophils % (auto) 86.3 % (37.0-80.0); Nucleated Red Blood Cells % 0.9 %
[2020-01-15 03:35] LABS: Basophils # (auto) 0 10 ^3/uL (0-0.2); Basophils % (auto) 0.2 % (0.0-2.0); Eosinophils % (auto) 1.7 % (0.0-7.0); Hematocrit 23.5 % (36.0-46.0); Lymphocytes # (auto) 1.8 10 ^3/uL (0.4-5.4); Lymphocytes % (auto) 8.2 % (10.0-50.0); Mean Corpuscular Hemoglobin 28.8 pg (28.0-32.0); Mean Corpuscular Hgb Conc. 31.5 g/dL (32.0-36.0); Mean Corpuscular Volume 91.4 fL (80.0-100.0); Monocytes % (auto) 3.6 % (0.0-12.0); Neutrophils # (auto) 19.3 10 ^3/uL (1.6-8.6); Platelet Count (auto) 74 10^3/uL (140-450); Red Blood Cells 2.57 10^6/uL (4.0-5.20); Red Cell Distribution Width 16.7 % (11.8-14.3); White Blood Cell 22.3 10^3/uL (4.4-10.8)
[2020-01-15 03:52] LABS: Albumin 1.3 g/dL (3.4-5.0); Calcium 7.5 mg/dL (8.5-10.1); Magnesium 2.1 mg/dL (1.6-2.6); Potassium 4.4 mmol/L (3.5-5.1)
[2020-01-15 03:56] LABS: BUN/Creatinine Ratio 12.1; Bilirubin, Total 0.4 mg/dL (0.2-1.0); Phosphorus 4.4 mg/dL (2.5-4.90); Total Protein 4.8 g/dL (6.4-8.2)
[2020-01-15] MEDS: NOREPINEPHRINE 8 MG/250ML KIT 250 ML IV SCH ×5 (04:34→21:32)
[2020-01-15] MEDS: VANCOMYCIN HCL 125MG/5ML ORAL SOL PO SCH ×4 (05:44→22:12)
[2020-01-15] MEDS: LEVOTHYROXINE SODIUM 25 MCG TAB PO SCH (05:46)
[2020-01-15] MEDS ORDERED: SODIUM CHL 0.9% 1000 ML BAG XX ONE (07:00)
[2020-01-15] MEDS: LACTULOSE 20Gm/30ML SOLN PO SCH ×2 (08:44→22:11)
[2020-01-15] MEDS: cefTRIAXone 1GM/50ML D5W 50 ML IV SCH (08:44)
[2020-01-15] MEDS: METOCLOPRAMIDE HCL 5MG/ml INJ 2ml VIAL IV SCH ×2 (08:44→22:15)
[2020-01-15] MEDS: SODIUM CHLOR 0.9% PF (SALINE LOCK) 10ML VIAL/SYR IV SCH ×2 (08:44→22:13)
[2020-01-15] MEDS: PANTOPRAZOLE 40 MG/10 ML VIAL INJ IV SCH ×2 (08:44→22:12)
[2020-01-15] MEDS: INSULIN LANTUS (GLARGINE) 1 /0.01ml (100units/ml) SC SCH ×2 (08:45→22:34)
[2020-01-15] MEDS: CILOSTAZOL 100 MG TAB PO SCH ×2 (08:45→22:12)
[2020-01-15] MEDS: NYSTATIN TOPICAL POWDER 15GM TOP SCH ×2 (08:45→22:17)
[2020-01-15] MEDS: CHOLECALCIFEROL (VITD3) 1,000UNIT=25mCg TAB PO SCH (08:45)
[2020-01-15 11:53] LABS: Hepatitis B Surface Antibody Negative
[2020-01-15 13:03] LABS: Hepatitis B Surface Antigen Negative (Negative)
[2020-01-15] MEDS: VASOPRESSIN 50 UNITS in D5W 5% 247.5 ML IV SCH (13:38)
[2020-01-15] MEDS: PHENYLEPHRINE INJ 40 MG in SODIUM CHL 0.9% 250 ML IV SCH (16:07)
[2020-01-15] MEDS ORDERED: TPN PER PHARMACY IV NR ×10 (20:00)
[2020-01-15] MEDS ORDERED: EPOETIN ALFA 10,000 UNIT/1 ML VIAL SC ONE (21:00)
[2020-01-15] MEDS: MORPHINE SULFATE 4 MG/ML SYR/VIAL IV PRN (21:00)
[2020-01-15] MEDS: ATORVASTATIN 20 MG TAB PO SCH (22:12)
[2020-01-15] MEDS: LATANOPROST 0.005 % OPTH(EYE) SOL 2.5ML LEFTEYE SCH (22:16)
[2020-01-16] VITALS (79 sets, daily range): BP systolic 36–183; BP diastolic 24–58
[2020-01-16] MEDS: LEVALBUTEROL HCL 1.25 MG/3 ML NEB NEB SCH ×4 (00:16→18:26)
[2020-01-16] MEDS: MORPHINE SULFATE 4 MG/ML SYR/VIAL IV PRN ×2 (00:40→04:48)
[2020-01-16] MEDS: NOREPINEPHRINE 8 MG/250ML KIT 250 ML IV SCH ×5 (01:39→23:03)
[2020-01-16] MEDS: fentaNYL Drip 2500mCg/250mlNS 250 ML IV SCH ×3 (02:41→23:02)
[2020-01-16] MEDS: PHENYLEPHRINE INJ 40 MG in SODIUM CHL 0.9% 250 ML IV SCH ×2 (04:20→21:00)
[2020-01-16 05:29] LABS: Albumin 1.1 g/dL (3.4-5.0); Calcium 7.5 mg/dL (8.5-10.1); Magnesium 2.1 mg/dL (1.6-2.6); Potassium 4.5 mmol/L (3.5-5.1)
[2020-01-16 05:31] LABS: BUN/Creatinine Ratio 14.5; Bilirubin, Total 0.4 mg/dL (0.2-1.0); Phosphorus 5.2 mg/dL (2.5-4.90); Total Protein 4.7 g/dL (6.4-8.2)
[2020-01-16] MEDS: ACCU-CHEK COMFORT CURVE STRIP VI SCH ×5 (06:27→23:45)
[2020-01-16] MEDS: VANCOMYCIN HCL 125MG/5ML ORAL SOL PO SCH ×4 (06:27→22:17)
[2020-01-16] MEDS: InsuLIN REG 1unit/0.01ml Soln (100units/ml) SC SCH ×5 (06:33→23:51)
[2020-01-16] MEDS: MIDAZOLAM DRIP 50 mg/50mL 50 ML IV SCH ×3 (06:47→23:05)
[2020-01-16] MEDS: LEVOTHYROXINE SODIUM 25 MCG TAB PO SCH (06:59)
[2020-01-16] MEDS: cefTRIAXone 1GM/50ML D5W 50 ML IV SCH (09:36)
[2020-01-16] MEDS: METOCLOPRAMIDE HCL 5MG/ml INJ 2ml VIAL IV SCH ×2 (09:42→21:57)
[2020-01-16] MEDS: LACTULOSE 20Gm/30ML SOLN PO SCH ×2 (09:42→22:00)
[2020-01-16] MEDS: NYSTATIN TOPICAL POWDER 15GM TOP SCH ×2 (10:00→22:20)
[2020-01-16] MEDS: CHOLECALCIFEROL (VITD3) 1,000UNIT=25mCg TAB PO SCH (10:11)
[2020-01-16] MEDS: PANTOPRAZOLE 40 MG/10 ML VIAL INJ IV SCH ×2 (10:11→21:57)
[2020-01-16] MEDS: CILOSTAZOL 100 MG TAB PO SCH ×2 (10:11→22:19)
[2020-01-16] MEDS: SODIUM CHLOR 0.9% PF (SALINE LOCK) 10ML VIAL/SYR IV SCH ×2 (10:11→21:59)
[2020-01-16] MEDS: INSULIN LANTUS (GLARGINE) 1 /0.01ml (100units/ml) SC SCH ×2 (10:13→22:20)
[2020-01-16] MEDS: VASOPRESSIN 50 UNITS in D5W 5% 247.5 ML IV SCH ×2 (11:35→13:49)
[2020-01-16] MEDS ORDERED: VANCOMYCIN 500 MG in D5W 5% 100 ML IV ONE (15:30)
[2020-01-16] MEDS: ACETAMINOPHEN 325 MG TAB PO PRN (16:20)
[2020-01-16] MEDS ORDERED: TPN PER PHARMACY IV NR ×10 (20:00)
[2020-01-16] MEDS: LATANOPROST 0.005 % OPTH(EYE) SOL 2.5ML LEFTEYE SCH (21:59)
[2020-01-16] MEDS: ATORVASTATIN 20 MG TAB PO SCH (22:18)
[2020-01-17] VITALS (64 sets, daily range): BP systolic 81–178; BP diastolic 27–63
[2020-01-17] MEDS: LEVALBUTEROL HCL 1.25 MG/3 ML NEB NEB SCH ×4 (00:13→18:24)
[2020-01-17] MEDS: NOREPINEPHRINE 8 MG/250ML KIT 250 ML IV SCH ×5 (02:17→20:44)
[2020-01-17 04:09] LABS: Basophils # (auto) 0 10 ^3/uL (0-0.2); Basophils % (auto) 0.1 % (0.0-2.0); Eosinophils # (auto) 0.4 10 ^3/uL (0-0.8); Eosinophils % (auto) 2.4 % (0.0-7.0); Hematocrit 19.8 % (36.0-46.0); Lymphocytes # (auto) 1.4 10 ^3/uL (0.4-5.4); Lymphocytes % (auto) 8.6 % (10.0-50.0); Mean Corpuscular Hemoglobin 29.7 pg (28.0-32.0); Mean Corpuscular Hgb Conc. 32.1 g/dL (32.0-36.0); Mean Corpuscular Volume 92.6 fL (80.0-100.0); Monocytes # (auto) 1.4 10 ^3/uL (0-1.3); Monocytes % (auto) 8.3 % (0.0-12.0); Neutrophils # (auto) 13.3 10 ^3/uL (1.6-8.6); Neutrophils % (auto) 80.6 % (37.0-80.0); Nucleated Red Blood Cells % 0.1 %; Platelet Count (auto) 83 10^3/uL (140-450); Red Blood Cells 2.13 10^6/uL (4.0-5.20); Red Cell Distribution Width 17.4 % (11.8-14.3); White Blood Cell 16.4 10^3/uL (4.4-10.8)
[2020-01-17 04:11] LABS: Hemoglobin 6.3 g/dL (12.2-16.2)
[2020-01-17 04:27] LABS: BUN/Creatinine Ratio 16.5; Calcium 7.7 mg/dL (8.5-10.1); Magnesium 1.9 mg/dL (1.6-2.6); Potassium 4.8 mmol/L (3.5-5.1)
[2020-01-17 04:30] LABS: Bilirubin, Total 0.4 mg/dL (0.2-1.0); Total Protein 4.9 g/dL (6.4-8.2)
[2020-01-17 04:42] LABS: Phosphorus 5.9 mg/dL (2.5-4.90)
[2020-01-17 05:18] LABS: Pre Albumin 6.9 mg/dL (20.0-40.0)
[2020-01-17] MEDS: VANCOMYCIN HCL 125MG/5ML ORAL SOL PO SCH ×4 (06:00→22:36)
[2020-01-17] MEDS: ACCU-CHEK COMFORT CURVE STRIP VI SCH ×3 (06:00→17:35)
[2020-01-17] MEDS ORDERED: SODIUM CHL 0.9% 1000 ML BAG XX ONE (07:00)
[2020-01-17] MEDS: InsuLIN REG 1unit/0.01ml Soln (100units/ml) SC SCH ×3 (07:08→17:39)
[2020-01-17] MEDS: LEVOTHYROXINE SODIUM 25 MCG TAB PO SCH (07:14)
[2020-01-17] MEDS: MIDAZOLAM DRIP 50 mg/50mL 50 ML IV SCH ×3 (07:16→22:29)
[2020-01-17] MEDS: ACETAMINOPHEN 325 MG TAB PO PRN (07:32)
[2020-01-17] MEDS: cefTRIAXone 1GM/50ML D5W 50 ML IV SCH (09:28)
[2020-01-17] MEDS: LACTULOSE 20Gm/30ML SOLN PO SCH ×2 (09:30→22:25)
[2020-01-17] MEDS: CHOLECALCIFEROL (VITD3) 1,000UNIT=25mCg TAB PO SCH (09:30)
[2020-01-17] MEDS: METOCLOPRAMIDE HCL 5MG/ml INJ 2ml VIAL IV SCH ×2 (09:31→22:24)
[2020-01-17] MEDS: PANTOPRAZOLE 40 MG/10 ML VIAL INJ IV SCH ×2 (09:31→22:24)
[2020-01-17] MEDS: CILOSTAZOL 100 MG TAB PO SCH ×2 (09:31→22:25)
[2020-01-17] MEDS: SODIUM CHLOR 0.9% PF (SALINE LOCK) 10ML VIAL/SYR IV SCH ×2 (09:31→22:17)
[2020-01-17] MEDS: INSULIN LANTUS (GLARGINE) 1 /0.01ml (100units/ml) SC SCH ×2 (09:33→22:34)
[2020-01-17] MEDS: NYSTATIN TOPICAL POWDER 15GM TOP SCH ×2 (09:34→22:37)
[2020-01-17] MEDS: fentaNYL Drip 2500mCg/250mlNS 250 ML IV SCH ×2 (10:52→22:31)
[2020-01-17] MEDS: PHENYLEPHRINE INJ 40 MG in SODIUM CHL 0.9% 250 ML IV SCH (12:42)
[2020-01-17] MEDS: VASOPRESSIN 50 UNITS in D5W 5% 247.5 ML IV SCH (16:30)
[2020-01-17] MEDS ORDERED: VANCOMYCIN 1GM/250ML 250 ML IV ONE (17:00)
[2020-01-17] MEDS ORDERED: TPN PER PHARMACY IV NR ×8 (20:00)
[2020-01-17] MEDS ORDERED: EPOETIN ALFA 10,000 UNIT/1 ML VIAL SC ONE (21:00)
[2020-01-17] MEDS: ATORVASTATIN 20 MG TAB PO SCH (22:25)
[2020-01-17] MEDS: LATANOPROST 0.005 % OPTH(EYE) SOL 2.5ML LEFTEYE SCH (22:27)
[2020-01-18] VITALS (77 sets, daily range): BP systolic 82–143; BP diastolic 20–96
[2020-01-18] MEDS: InsuLIN REG 1unit/0.01ml Soln (100units/ml) SC SCH ×4 (00:54→18:26)
[2020-01-18] MEDS: ACCU-CHEK COMFORT CURVE STRIP VI SCH ×4 (00:54→18:24)
[2020-01-18] MEDS: NOREPINEPHRINE 8 MG/250ML KIT 250 ML IV SCH ×2 (03:32→21:54)
[2020-01-18 04:25] LABS: Basophils # (auto) 0 10 ^3/uL (0-0.2); Basophils % (auto) 0.2 % (0.0-2.0); Eosinophils # (auto) 0.3 10 ^3/uL (0-0.8); Eosinophils % (auto) 2.1 % (0.0-7.0); Hematocrit 22.2 % (36.0-46.0); Hemoglobin 7.3 g/dL (12.2-16.2); Lymphocytes # (auto) 0.6 10 ^3/uL (0.4-5.4); Lymphocytes % (auto) 4.7 % (10.0-50.0); Mean Corpuscular Hemoglobin 28.8 pg (28.0-32.0); Mean Corpuscular Hgb Conc. 32.7 g/dL (32.0-36.0); Mean Corpuscular Volume 88.3 fL (80.0-100.0); Monocytes # (auto) 1.2 10 ^3/uL (0-1.3); Monocytes % (auto) 9.4 % (0.0-12.0); Neutrophils # (auto) 10.6 10 ^3/uL (1.6-8.6); Neutrophils % (auto) 83.6 % (37.0-80.0); Nucleated Red Blood Cells % 0.2 %; Platelet Count (auto) 76 10^3/uL (140-450); Red Blood Cells 2.52 10^6/uL (4.0-5.20); Red Cell Distribution Width 17.5 % (11.8-14.3); White Blood Cell 12.6 10^3/uL (4.4-10.8)
[2020-01-18 04:51] LABS: Calcium 6.9 mg/dL (8.5-10.1); Magnesium 1.9 mg/dL (1.6-2.6); Potassium 3.9 mmol/L (3.5-5.1)
[2020-01-18] MEDS: ACETAMINOPHEN 325 MG TAB PO PRN (04:53)
[2020-01-18 04:55] LABS: BUN/Creatinine Ratio 19.1; Bilirubin, Total 0.3 mg/dL (0.2-1.0); Phosphorus 3.8 mg/dL (2.5-4.90); Total Protein 4.1 g/dL (6.4-8.2)
[2020-01-18 04:59] LABS: Albumin 0.9 g/dL (3.4-5.0)
[2020-01-18] MEDS: LEVALBUTEROL HCL 1.25 MG/3 ML NEB NEB SCH ×4 (06:15→18:13)
[2020-01-18] MEDS: PHENYLEPHRINE INJ 40 MG in SODIUM CHL 0.9% 250 ML IV SCH ×2 (06:20→23:00)
[2020-01-18] MEDS: VANCOMYCIN HCL 125MG/5ML ORAL SOL PO SCH ×4 (08:01→21:56)
[2020-01-18] MEDS: LEVOTHYROXINE SODIUM 25 MCG TAB PO SCH (08:03)
[2020-01-18] MEDS: PANTOPRAZOLE 40 MG/10 ML VIAL INJ IV SCH ×2 (09:57→21:52)
[2020-01-18] MEDS: cefTRIAXone 1GM/50ML D5W 50 ML IV SCH (09:57)
[2020-01-18] MEDS: CILOSTAZOL 100 MG TAB PO SCH ×2 (09:58→21:53)
[2020-01-18] MEDS: SODIUM CHLOR 0.9% PF (SALINE LOCK) 10ML VIAL/SYR IV SCH ×4 (09:58→21:55)
[2020-01-18] MEDS: NYSTATIN TOPICAL POWDER 15GM TOP SCH ×2 (09:58→21:53)
[2020-01-18] MEDS: LACTULOSE 20Gm/30ML SOLN PO SCH ×2 (09:58→22:00)
[2020-01-18] MEDS: METOCLOPRAMIDE HCL 5MG/ml INJ 2ml VIAL IV SCH ×2 (09:58→21:55)
[2020-01-18] MEDS: CHOLECALCIFEROL (VITD3) 1,000UNIT=25mCg TAB PO SCH (09:58)
[2020-01-18] MEDS: INSULIN LANTUS (GLARGINE) 1 /0.01ml (100units/ml) SC SCH ×2 (10:00→21:59)
[2020-01-18] MEDS: fentaNYL Drip 2500mCg/250mlNS 250 ML IV SCH ×2 (10:45→22:01)
[2020-01-18] MEDS: MIDAZOLAM DRIP 50 mg/50mL 50 ML IV SCH ×2 (14:32→18:24)
[2020-01-18] MEDS: VASOPRESSIN 50 UNITS in D5W 5% 247.5 ML IV SCH (16:30)
[2020-01-18] MEDS ORDERED: TPN PER PHARMACY IV NR ×9 (20:00)
[2020-01-18] MEDS: ATORVASTATIN 20 MG TAB PO SCH (21:53)
[2020-01-18] MEDS: LATANOPROST 0.005 % OPTH(EYE) SOL 2.5ML LEFTEYE SCH (21:55)
[2020-01-19] VITALS (89 sets, daily range): BP systolic 87–148; BP diastolic 19–62
[2020-01-19] MEDS: NOREPINEPHRINE 8 MG/250ML KIT 250 ML IV SCH (00:27)
[2020-01-19] MEDS: LEVALBUTEROL HCL 1.25 MG/3 ML NEB NEB SCH ×4 (00:34→18:20)
[2020-01-19] MEDS: VANCOMYCIN HCL 125MG/5ML ORAL SOL PO SCH ×4 (06:00→22:00)
[2020-01-19] MEDS: ACCU-CHEK COMFORT CURVE STRIP VI SCH ×4 (06:00→17:19)
[2020-01-19] MEDS: InsuLIN REG 1unit/0.01ml Soln (100units/ml) SC SCH ×5 (06:30→23:38)
[2020-01-19] MEDS: LEVOTHYROXINE SODIUM 25 MCG TAB PO SCH (06:33)
[2020-01-19 07:11] LABS: Basophils # (auto) 0.1 10 ^3/uL (0-0.2); Basophils % (auto) 0.4 % (0.0-2.0); Eosinophils # (auto) 0.3 10 ^3/uL (0-0.8); Eosinophils % (auto) 1.8 % (0.0-7.0); Red Blood Cells 2.68 10^6/uL (4.0-5.20)
[2020-01-19 07:12] LABS: Calcium 7.4 mg/dL (8.5-10.1); Hematocrit 23.6 % (36.0-46.0); Hemoglobin 7.7 g/dL (12.2-16.2); Lymphocytes # (auto) 0.7 10 ^3/uL (0.4-5.4); Lymphocytes % (auto) 4.2 % (10.0-50.0); Magnesium 2.2 mg/dL (1.6-2.6); Mean Corpuscular Hemoglobin 28.9 pg (28.0-32.0); Mean Corpuscular Hgb Conc. 32.7 g/dL (32.0-36.0); Mean Corpuscular Volume 88.1 fL (80.0-100.0); Monocytes # (auto) 1.3 10 ^3/uL (0-1.3); Monocytes % (auto) 7.7 % (0.0-12.0); Neutrophils # (auto) 14.1 10 ^3/uL (1.6-8.6); Neutrophils % (auto) 85.9 % (37.0-80.0); Platelet Count (auto) 123 10^3/uL (140-450); Red Cell Distribution Width 17.6 % (11.8-14.3); White Blood Cell 16.4 10^3/uL (4.4-10.8)
[2020-01-19 07:17] LABS: BUN/Creatinine Ratio 20.2; Bilirubin, Total 0.3 mg/dL (0.2-1.0); Phosphorus 4.5 mg/dL (2.5-4.90); Total Protein 4.8 g/dL (6.4-8.2)
[2020-01-19 07:23] LABS: Albumin 0.9 g/dL (3.4-5.0)
[2020-01-19] MEDS: cefTRIAXone 1GM/50ML D5W 50 ML IV SCH (08:34)
[2020-01-19] MEDS: fentaNYL Drip 2500mCg/250mlNS 250 ML IV SCH ×2 (09:12→23:30)
[2020-01-19] MEDS: LACTULOSE 20Gm/30ML SOLN PO SCH ×2 (10:00→22:00)
[2020-01-19] MEDS: PANTOPRAZOLE 40 MG/10 ML VIAL INJ IV SCH ×2 (10:00→22:00)
[2020-01-19] MEDS: NYSTATIN TOPICAL POWDER 15GM TOP SCH ×2 (10:00→22:00)
[2020-01-19] MEDS: METOCLOPRAMIDE HCL 5MG/ml INJ 2ml VIAL IV SCH ×2 (10:00→22:00)
[2020-01-19] MEDS: SODIUM CHLOR 0.9% PF (SALINE LOCK) 10ML VIAL/SYR IV SCH ×4 (10:00→22:00)
[2020-01-19] MEDS: CILOSTAZOL 100 MG TAB PO SCH ×2 (10:00→22:00)
[2020-01-19] MEDS: CHOLECALCIFEROL (VITD3) 1,000UNIT=25mCg TAB PO SCH (10:00)
[2020-01-19] MEDS: INSULIN LANTUS (GLARGINE) 1 /0.01ml (100units/ml) SC SCH ×2 (10:00→22:00)
[2020-01-19] MEDS: NOREPINEPHRINE BITARTRATE 16 MG in SODIUM CHL 0.9% 250 ML IV SCH ×2 (15:30→22:30)
[2020-01-19] MEDS: PHENYLEPHRINE INJ 40 MG in SODIUM CHL 0.9% 250 ML IV SCH (15:40)
[2020-01-19] MEDS: VASOPRESSIN 50 UNITS in D5W 5% 247.5 ML IV SCH (16:20)
[2020-01-19] MEDS ORDERED: TPN PER PHARMACY IV NR ×9 (20:00)
[2020-01-19] MEDS: ATORVASTATIN 20 MG TAB PO SCH (22:00)
[2020-01-19] MEDS: LATANOPROST 0.005 % OPTH(EYE) SOL 2.5ML LEFTEYE SCH (22:00)
[2020-01-20] VITALS (60 sets, daily range): BP systolic 82–133; BP diastolic 23–48
[2020-01-20] MEDS: MIDAZOLAM DRIP 50 mg/50mL 50 ML IV SCH ×3 (02:06→20:03)
[2020-01-20 04:36] LABS: Calcium 8.1 mg/dL (8.5-10.1); Potassium 3.9 mmol/L (3.5-5.1)
[2020-01-20 04:41] LABS: BUN/Creatinine Ratio 21.8; Bilirubin, Total 0.3 mg/dL (0.2-1.0); Total Protein 4.9 g/dL (6.4-8.2)
[2020-01-20 04:47] LABS: Albumin 0.9 g/dL (3.4-5.0)
[2020-01-20] MEDS: VANCOMYCIN HCL 125MG/5ML ORAL SOL PO SCH ×4 (05:41→22:34)
[2020-01-20] MEDS: InsuLIN REG 1unit/0.01ml Soln (100units/ml) SC SCH ×3 (05:41→17:16)
[2020-01-20] MEDS: ACCU-CHEK COMFORT CURVE STRIP VI SCH ×4 (05:41→17:16)
[2020-01-20] MEDS: LEVOTHYROXINE SODIUM 25 MCG TAB PO SCH (05:42)
[2020-01-20] MEDS: LEVALBUTEROL HCL 1.25 MG/3 ML NEB NEB SCH ×5 (06:12→23:56)
[2020-01-20] MEDS ORDERED: SODIUM CHL 0.9% 1000 ML BAG XX ONE (07:00)
[2020-01-20] MEDS: NOREPINEPHRINE BITARTRATE 16 MG in SODIUM CHL 0.9% 250 ML IV SCH ×2 (07:26→16:51)
[2020-01-20] MEDS: fentaNYL Drip 2500mCg/250mlNS 250 ML IV SCH ×2 (08:03→20:02)
[2020-01-20] MEDS: cefTRIAXone 1GM/50ML D5W 50 ML IV SCH (09:09)
[2020-01-20] MEDS: PANTOPRAZOLE 40 MG/10 ML VIAL INJ IV SCH ×2 (09:10→22:32)
[2020-01-20] MEDS: SODIUM CHLOR 0.9% PF (SALINE LOCK) 10ML VIAL/SYR IV SCH ×3 (09:10→22:32)
[2020-01-20] MEDS: PHENYLEPHRINE INJ 40 MG in SODIUM CHL 0.9% 250 ML IV SCH ×2 (09:16→16:51)
[2020-01-20] MEDS: LACTULOSE 20Gm/30ML SOLN PO SCH ×2 (09:55→22:32)
[2020-01-20] MEDS: METOCLOPRAMIDE HCL 5MG/ml INJ 2ml VIAL IV SCH ×2 (09:55→22:32)
[2020-01-20] MEDS: CHOLECALCIFEROL (VITD3) 2,000 UNIT CAP PO SCH (09:55)
[2020-01-20] MEDS: INSULIN LANTUS (GLARGINE) 1 /0.01ml (100units/ml) SC SCH ×2 (09:57→22:35)
[2020-01-20] MEDS: NYSTATIN TOPICAL POWDER 15GM TOP SCH ×2 (09:57→22:37)
[2020-01-20] MEDS ORDERED: ALBUMIN 25% 100 ML IV ONE (10:15)
[2020-01-20] MEDS: CILOSTAZOL 100 MG TAB PO SCH ×2 (10:31→22:33)
[2020-01-20] MEDS ORDERED: HYDROCORTISONE SOD SUCC 100 MG/2ML INJ VIAL IV ONE (11:45)
[2020-01-20] MEDS ORDERED: VANCOMYCIN 1GM/250ML 250 ML IV ONE (16:00)
[2020-01-20] MEDS ORDERED: TPN*HIGH CONC* PER PHARMACY IV NR ×10 (20:00)
[2020-01-20] MEDS: HYDROCORTISONE SOD SUCC 100 MG/2ML INJ VIAL IV SCH (22:32)
[2020-01-20] MEDS: ATORVASTATIN 20 MG TAB PO SCH (22:33)
[2020-01-20] MEDS: LATANOPROST 0.005 % OPTH(EYE) SOL 2.5ML LEFTEYE SCH (22:37)
[2020-01-21] VITALS (94 sets, daily range): BP systolic 80–138; BP diastolic 22–57
[2020-01-21] MEDS: ACCU-CHEK COMFORT CURVE STRIP VI SCH ×4 (00:02→17:42)
[2020-01-21] MEDS: MIDAZOLAM DRIP 50 mg/50mL 50 ML IV SCH ×6 (00:38→23:32)
[2020-01-21] MEDS: NOREPINEPHRINE BITARTRATE 16 MG in SODIUM CHL 0.9% 250 ML IV SCH ×2 (00:46→08:14)
[2020-01-21 04:32] LABS: Potassium 3.6 mmol/L (3.5-5.1)
[2020-01-21 04:46] LABS: Albumin 1.2 g/dL (3.4-5.0); BUN/Creatinine Ratio 19.7; Bilirubin, Total 0.3 mg/dL (0.2-1.0); Magnesium 2.2 mg/dL (1.6-2.6); Phosphorus 4.7 mg/dL (2.5-4.90); Total Protein 5.4 g/dL (6.4-8.2)
[2020-01-21] MEDS: PHENYLEPHRINE INJ 40 MG in SODIUM CHL 0.9% 250 ML IV SCH ×2 (05:21→18:57)
[2020-01-21] MEDS: VANCOMYCIN HCL 125MG/5ML ORAL SOL PO SCH ×4 (06:03→22:00)
[2020-01-21] MEDS: LEVOTHYROXINE SODIUM 25 MCG TAB PO SCH (06:04)
[2020-01-21] MEDS: InsuLIN REG 1unit/0.01ml Soln (100units/ml) SC SCH ×4 (06:05→17:43)
[2020-01-21] MEDS: LEVALBUTEROL HCL 1.25 MG/3 ML NEB NEB SCH ×3 (06:30→18:42)
[2020-01-21] MEDS: fentaNYL Drip 2500mCg/250mlNS 250 ML IV SCH ×3 (08:17→19:56)
[2020-01-21] MEDS: METOCLOPRAMIDE HCL 5MG/ml INJ 2ml VIAL IV SCH ×2 (09:20→22:31)
[2020-01-21] MEDS: cefTRIAXone 1GM/50ML D5W 50 ML IV SCH (09:20)
[2020-01-21] MEDS: PANTOPRAZOLE 40 MG/10 ML VIAL INJ IV SCH ×2 (09:20→22:31)
[2020-01-21] MEDS: LACTULOSE 20Gm/30ML SOLN PO SCH ×2 (09:21→22:58)
[2020-01-21] MEDS: HYDROCORTISONE SOD SUCC 100 MG/2ML INJ VIAL IV SCH ×2 (09:21→22:32)
[2020-01-21] MEDS: SODIUM CHLOR 0.9% PF (SALINE LOCK) 10ML VIAL/SYR IV SCH ×2 (09:21→22:31)
[2020-01-21] MEDS: INSULIN LANTUS (GLARGINE) 1 /0.01ml (100units/ml) SC SCH ×2 (09:22→23:01)
[2020-01-21] MEDS: CHOLECALCIFEROL (VITD3) 2,000 UNIT CAP PO SCH (09:23)
[2020-01-21] MEDS: NYSTATIN TOPICAL POWDER 15GM TOP SCH ×2 (09:23→22:58)
[2020-01-21] MEDS ORDERED: VANCOMYCIN 1GM/250ML 250 ML IV ONE (12:50)
[2020-01-21] MEDS: CILOSTAZOL 100 MG TAB PO SCH ×2 (12:51→22:33)
[2020-01-21] MEDS ORDERED: POTASSIUM CHLORIDE IV NR ×10 (20:00)
[2020-01-21] MEDS ORDERED: [UNRECOGNIZED DRUG - OTHER] IV NR ×10 (20:00)
[2020-01-21] MEDS ORDERED: FAT EMULSION30 IV NR ×10 (20:00)
[2020-01-21] MEDS ORDERED: SODIUM CHLORIDE IV NR ×10 (20:00)
[2020-01-21] MEDS: ATORVASTATIN 20 MG TAB PO SCH (22:33)
[2020-01-21] MEDS: LATANOPROST 0.005 % OPTH(EYE) SOL 2.5ML LEFTEYE SCH (22:58)
[2020-01-22] VITALS (79 sets, daily range): BP systolic 66–128; BP diastolic 24–64
[2020-01-22] MEDS: LEVALBUTEROL HCL 1.25 MG/3 ML NEB NEB SCH ×4 (00:11→18:11)
[2020-01-22] MEDS: ACCU-CHEK COMFORT CURVE STRIP VI SCH ×4 (00:32→18:12)
[2020-01-22] MEDS: InsuLIN REG 1unit/0.01ml Soln (100units/ml) SC SCH ×4 (00:36→18:12)
[2020-01-22] MEDS: NOREPINEPHRINE BITARTRATE 16 MG in SODIUM CHL 0.9% 250 ML IV SCH ×2 (00:47→20:00)
[2020-01-22] MEDS: MIDAZOLAM DRIP 50 mg/50mL 50 ML IV SCH ×4 (03:19→21:49)
[2020-01-22 04:12] LABS: Potassium 3.3 mmol/L (3.5-5.1)
[2020-01-22 04:19] LABS: Albumin 1.2 g/dL (3.4-5.0); BUN/Creatinine Ratio 22.7; Bilirubin, Total 0.2 mg/dL (0.2-1.0); Calcium 8.5 mg/dL (8.5-10.1); Magnesium 2.2 mg/dL (1.6-2.6); Phosphorus 4.8 mg/dL (2.5-4.90); Total Protein 5.4 g/dL (6.4-8.2)
[2020-01-22] MEDS: VANCOMYCIN HCL 125MG/5ML ORAL SOL PO SCH ×4 (06:00→21:51)
[2020-01-22] MEDS: LEVOTHYROXINE SODIUM 25 MCG TAB PO SCH (06:23)
[2020-01-22] MEDS: ACETAMINOPHEN 325 MG TAB PO PRN (08:14)
[2020-01-22] MEDS: fentaNYL Drip 2500mCg/250mlNS 250 ML IV SCH ×2 (08:28→20:00)
[2020-01-22] MEDS ORDERED: POTASSIUM CHL 20MEQ/100ML 100 ML IV ONE (09:00)
[2020-01-22 09:10] LABS: Basophils # (auto) 0.3 10 ^3/uL (0-0.2); Eosinophils # (auto) 0 10 ^3/uL (0-0.8); Hemoglobin 7.1 g/dL (12.2-16.2); Lymphocytes # (auto) 0.5 10 ^3/uL (0.4-5.4)
[2020-01-22 09:11] LABS: Basophils % (auto) 1.1 % (0.0-2.0); Hematocrit 22.6 % (36.0-46.0); Mean Corpuscular Hemoglobin 28.3 pg (28.0-32.0); Mean Corpuscular Hgb Conc. 31.5 g/dL (32.0-36.0); Mean Corpuscular Volume 89.8 fL (80.0-100.0); Monocytes # (auto) 1.2 10 ^3/uL (0-1.3); Monocytes % (auto) 4.9 % (0.0-12.0); Neutrophils # (auto) 23.1 10 ^3/uL (1.6-8.6); Nucleated Red Blood Cells % 0.1 %; Platelet Count (auto) 249 10^3/uL (140-450); Red Blood Cells 2.51 10^6/uL (4.0-5.20); White Blood Cell 25.2 10^3/uL (4.4-10.8)
[2020-01-22] MEDS: cefTRIAXone 1GM/50ML D5W 50 ML IV SCH (10:12)
[2020-01-22] MEDS: PANTOPRAZOLE 40 MG/10 ML VIAL INJ IV SCH ×2 (10:12→21:40)
[2020-01-22] MEDS: LACTULOSE 20Gm/30ML SOLN PO SCH ×2 (10:13→21:51)
[2020-01-22] MEDS: METOCLOPRAMIDE HCL 5MG/ml INJ 2ml VIAL IV SCH ×2 (10:13→21:40)
[2020-01-22] MEDS: SODIUM CHLOR 0.9% PF (SALINE LOCK) 10ML VIAL/SYR IV SCH ×2 (10:13→21:45)
[2020-01-22] MEDS: HYDROCORTISONE SOD SUCC 100 MG/2ML INJ VIAL IV SCH ×2 (10:13→22:00)
[2020-01-22] MEDS: CHOLECALCIFEROL (VITD3) 2,000 UNIT CAP PO SCH (10:14)
[2020-01-22] MEDS: INSULIN LANTUS (GLARGINE) 1 /0.01ml (100units/ml) SC SCH ×2 (10:15→22:00)
[2020-01-22] MEDS: NYSTATIN TOPICAL POWDER 15GM TOP SCH ×2 (10:16→22:00)
[2020-01-22] MEDS ORDERED: NOREPINEPHRINE 8 MG/250ML KIT 250 ML IV ONE (10:40)
[2020-01-22] MEDS: CILOSTAZOL 100 MG TAB PO SCH ×2 (10:59→21:51)
[2020-01-22] MEDS ORDERED: SODIUM CHL 0.9% 1000 ML BAG XX ONE (11:45)
[2020-01-22] MEDS ORDERED: [UNRECOGNIZED DRUG - OTHER] IV NR ×10 (20:00)
[2020-01-22] MEDS ORDERED: SODIUM CHLORIDE IV NR ×10 (20:00)
[2020-01-22] MEDS ORDERED: FAT EMULSION30 IV NR ×10 (20:00)
[2020-01-22] MEDS ORDERED: POTASSIUM CHLORIDE IV NR ×10 (20:00)
[2020-01-22] MEDS: ATORVASTATIN 20 MG TAB PO SCH (21:51)
[2020-01-22] MEDS: LATANOPROST 0.005 % OPTH(EYE) SOL 2.5ML LEFTEYE SCH (22:00)
[2020-01-23] VITALS (54 sets, daily range): BP systolic 59–143; BP diastolic 17–73
[2020-01-23] MEDS: LEVALBUTEROL HCL 1.25 MG/3 ML NEB NEB SCH ×4 (00:37→18:22)
[2020-01-23] MEDS: PHENYLEPHRINE INJ 40 MG in SODIUM CHL 0.9% 250 ML IV SCH ×2 (01:49→15:46)
[2020-01-23 04:18] LABS: Potassium 3.2 mmol/L (3.5-5.1)
[2020-01-23 04:27] LABS: Albumin 1.2 g/dL (3.4-5.0); BUN/Creatinine Ratio 24.7; Bilirubin, Total 0.2 mg/dL (0.2-1.0); Calcium 8.4 mg/dL (8.5-10.1); Magnesium 2.2 mg/dL (1.6-2.6); Phosphorus 4.1 mg/dL (2.5-4.90); Total Protein 5.3 g/dL (6.4-8.2)
[2020-01-23] MEDS: InsuLIN REG 1unit/0.01ml Soln (100units/ml) SC SCH ×5 (06:09→23:33)
[2020-01-23] MEDS: ACCU-CHEK COMFORT CURVE STRIP VI SCH ×5 (06:09→23:33)
[2020-01-23] MEDS: LEVOTHYROXINE SODIUM 25 MCG TAB PO SCH (06:10)
[2020-01-23] MEDS: VANCOMYCIN HCL 125MG/5ML ORAL SOL PO SCH ×4 (06:10→21:52)
[2020-01-23] MEDS: NOREPINEPHRINE BITARTRATE 16 MG in SODIUM CHL 0.9% 250 ML IV SCH ×2 (06:59→15:44)
[2020-01-23] MEDS: cefTRIAXone 1GM/50ML D5W 50 ML IV SCH (07:53)
[2020-01-23] MEDS: ACETAMINOPHEN 325 MG TAB PO PRN (07:58)
[2020-01-23] MEDS: fentaNYL Drip 2500mCg/250mlNS 250 ML IV SCH (08:06)
[2020-01-23] MEDS: LACTULOSE 20Gm/30ML SOLN PO SCH ×2 (09:53→21:52)
[2020-01-23] MEDS: CHOLECALCIFEROL (VITD3) 2,000 UNIT CAP PO SCH (09:53)
[2020-01-23] MEDS: CILOSTAZOL 100 MG TAB PO SCH ×2 (09:53→21:53)
[2020-01-23] MEDS: METOCLOPRAMIDE HCL 5MG/ml INJ 2ml VIAL IV SCH ×2 (09:53→21:52)
[2020-01-23] MEDS: HYDROCORTISONE SOD SUCC 100 MG/2ML INJ VIAL IV SCH ×2 (09:53→21:52)
[2020-01-23] MEDS: INSULIN LANTUS (GLARGINE) 1 /0.01ml (100units/ml) SC SCH ×2 (09:55→21:53)
[2020-01-23] MEDS: NYSTATIN TOPICAL POWDER 15GM TOP SCH ×2 (10:00→21:53)
[2020-01-23] MEDS ORDERED: POTASSIUM EFFERVESENT TAB 25 MEQ GT SCH (10:00)
[2020-01-23] MEDS: PANTOPRAZOLE 40 MG/10 ML VIAL INJ IV SCH ×2 (10:00→21:52)
[2020-01-23] MEDS: SODIUM CHLOR 0.9% PF (SALINE LOCK) 10ML VIAL/SYR IV SCH ×2 (10:00→21:52)
[2020-01-23] MEDS: MIDAZOLAM DRIP 50 mg/50mL 50 ML IV SCH (15:43)
[2020-01-23] MEDS ORDERED: VANCOMYCIN 1GM/250ML 250 ML IV ONE (16:00)
[2020-01-23] MEDS ORDERED: TPN*HIGH CONC* PER PHARMACY IV NR ×11 (20:00)
[2020-01-23] MEDS ORDERED: TPN PER PHARMACY IV NR ×11 (20:00)
[2020-01-23] MEDS ORDERED: LORazepam 2MG/ML-1ML VIAL IV PRN (20:45)
[2020-01-23] MEDS: MORPHINE SULFATE 4 MG/ML SYR/VIAL IV PRN ×2 (21:00→22:05)
[2020-01-23] MEDS ORDERED: HYDROmorphone HCL 2 MG/ML VL ONE (21:18)
[2020-01-23] MEDS: HYDROmorphone HCL 2 MG/ML VL IV PRN (21:23)
[2020-01-23] MEDS: ATORVASTATIN 20 MG TAB PO SCH (21:52)
[2020-01-23] MEDS: LATANOPROST 0.005 % OPTH(EYE) SOL 2.5ML LEFTEYE SCH (21:52)
[2020-01-24] VITALS: BP 65/27
[2020-01-24 00:30] VITALS: BP 64/27
[2020-01-24] MEDS: HYDROmorphone HCL 2 MG/ML VL IV PRN (00:43)
[2020-01-24 01:00] VITALS: BP 62/22
[2020-01-24 01:30] VITALS: BP 60/24
[2020-01-24 02:00] VITALS: BP 57/25
[2020-01-24 02:30] VITALS: BP 57/23
== END 2020-01-24 07:25 | disposition expired | DRG 853 ==
LOC: EDBD 14:06 → ER 14:06 → OVERFLOW 14:07 → DOU IN ICU 21:30 → TELE-WESTW 12-31 22:22 → ICU WEST 01-01 18:09
PROVIDERS: ADMIT Hospitalist; ATTEND Internal Medicine Nephrology
PROC: 30233N1 Transfusion of Nonautologous Red Blood Cells into Peripheral Vein, Percutaneous Approach (ICD-10-PCS; principal; 2019-12-29)
PROC: 02HV33Z Insertion of Infusion Device into Superior Vena Cava, Percutaneous Approach (ICD-10-PCS; 2020-01-01)
PROC: 0DJ08ZZ Inspection of Upper Intestinal Tract, Via Natural or Artificial Opening Endoscopic (ICD-10-PCS; 2020-01-02)
PROC: 0JB80ZZ Excision of Abdomen Subcutaneous Tissue and Fascia, Open Approach (ICD-10-PCS; 2020-01-05)
PROC: 5A1955Z Respiratory Ventilation, Greater than 96 Consecutive Hours (ICD-10-PCS; 2020-01-05)
PROC: 0BH17EZ Insertion of Endotracheal Airway into Trachea, Via Natural or Artificial Opening (ICD-10-PCS; 2020-01-05)
PROC: 5A1D70Z Performance of Urinary Filtration, Intermittent, Less than 6 Hours Per Day (ICD-10-PCS; 2020-01-09)
PROC: 05H433Z Insertion of Infusion Device into Left Innominate Vein, Percutaneous Approach (ICD-10-PCS; 2020-01-09)
PROC: B54NZZA Ultrasonography of Left Upper Extremity Veins, Guidance (ICD-10-PCS; 2020-01-09)
PROC: 5A1D70Z Performance of Urinary Filtration, Intermittent, Less than 6 Hours Per Day (ICD-10-PCS; 2020-01-11)
PROC: 5A1D70Z Performance of Urinary Filtration, Intermittent, Less than 6 Hours Per Day (ICD-10-PCS; 2020-01-13)
PROC: 5A1D70Z Performance of Urinary Filtration, Intermittent, Less than 6 Hours Per Day (ICD-10-PCS; 2020-01-15)
PROC: 5A1D70Z Performance of Urinary Filtration, Intermittent, Less than 6 Hours Per Day (ICD-10-PCS; 2020-01-17)
PROC: 02HV33Z Insertion of Infusion Device into Superior Vena Cava, Percutaneous Approach (ICD-10-PCS; 2020-01-18)
PROC: 5A1D70Z Performance of Urinary Filtration, Intermittent, Less than 6 Hours Per Day (ICD-10-PCS; 2020-01-20)
PROC: 5A1D70Z Performance of Urinary Filtration, Intermittent, Less than 6 Hours Per Day (ICD-10-PCS; 2020-01-22)
DX: A41.81 Sepsis due to Enterococcus (principal); G93.41 Metabolic encephalopathy; J18.9 Pneumonia, unspecified organism; N18.6 End stage renal disease; E43 Unspecified severe protein-calorie malnutrition; M72.6 Necrotizing fasciitis; I50.31 Acute diastolic (congestive) heart failure; R65.21 Severe sepsis with septic shock; E11.11 Type 2 diabetes mellitus with ketoacidosis with coma; J95.821 Acute postprocedural respiratory failure; L03.311 Cellulitis of abdominal wall; E87.1 Hypo-osmolality and hyponatremia; A04.72 Enterocolitis due to Clostridium difficile, not specified as recurrent; N17.9 Acute kidney failure, unspecified; Z99.11 Dependence on respirator [ventilator] status; I13.2 Hypertensive heart and chronic kidney disease with heart failure and with stage 5 chronic kidney disease, or end stage renal disease; Z68.43 Body mass index [BMI] 50.0-59.9, adult; J90 Pleural effusion, not elsewhere classified; E87.2 Acidosis; E11.52 Type 2 diabetes mellitus with diabetic peripheral angiopathy with gangrene; I96 Gangrene, not elsewhere classified; M79.3 Panniculitis, unspecified; E11.628 Type 2 diabetes mellitus with other skin complications; Z79.4 Long term (current) use of insulin; E11.22 Type 2 diabetes mellitus with diabetic chronic kidney disease; Z99.2 Dependence on renal dialysis; E78.5 Hyperlipidemia, unspecified; E66.01 Morbid (severe) obesity due to excess calories; K76.0 Fatty (change of) liver, not elsewhere classified; E03.9 Hypothyroidism, unspecified; E78.1 Pure hyperglyceridemia; E87.6 Hypokalemia; E87.8 Other disorders of electrolyte and fluid balance, not elsewhere classified; H40.9 Unspecified glaucoma; D63.1 Anemia in chronic kidney disease; Z20.828 Contact with and (suspected) exposure to other viral communicable diseases; Z79.02 Long term (current) use of antithrombotics/antiplatelets; Z82.49 Family history of ischemic heart disease and other diseases of the circulatory system; Z83.3 Family history of diabetes mellitus; Z91.19 Patient's noncompliance with other medical treatment and regimen; E11.42 Type 2 diabetes mellitus with diabetic polyneuropathy; K29.60 Other gastritis without bleeding
CPT/HCPCS: 36415; 36569; 36600; 43235; 70450; 71045; 74176; 80048; 80053; 80061; 80202; 81001; 82040; 82140; 82270; 82533; 82805; 82962; 83036; 83605; 83735; 83880; 84100; 84443; 84478; 84484; 85014; 85018; 85025; 85379; 85610; 85730; 86706; 86850; 86900; 86901; 86920; 87040; 87045; 87070; 87075; 87077; 87081; 87086; 87088; 87186; 87205; 87340; 87426; 87427; 87493; 89051; 90935; 92610; 93005; 93306; 93923; 93970; 94002; 94003; 94640; C9113; G0378; J0696; J0885; J1642; J1815; J2001; J2185; J2250; J2405; J2543; J2704; J3480; J3490; J7060; J7131; P9047